=== PATIENT | male | born 1935 | race Caucasian/White ===

== ENCOUNTER 2017-10-31 22:38 | Inpatient (IN) ==
--- NOTE | 2017-11-01 00:09 | ED ---
HPI General Chief complaint: Chest Pain Stated complaint: resp/chest pain Time Seen by Provider: 10/31/17 23:44 Source: patient and family Mode of arrival: ambulatory Limitations: no limitations History of Present Illness HPI narrative: The patient is an 82 year old male who presents to the [facility] emergency department with a history of progressively worsening shortness of breath over the last couple of days. The patient reports that yesterday he did notice that he had slightly increased lower extremity edema. The patient has a prior history of coronary artery disease status post coronary artery bypass grafting of 4 vessels in February 2017. He also has a history of congestive heart failure with a prior ejection fraction 25%. The patient reports that he has been taking Lasix 40 mg twice a day as prescribed. The patient also reports being chronically anticoagulated on Coumadin due to atrial fibrillation. 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 He reports having an occasional productive cough that is productive of white sputum. He denies having any fevers or chills. He reports that earlier today he did have an approximately 30 -minute episode of left-sided chest pain. He reports that the chest pain is "irritable" in character. He denies having any chest pain currently. He reports having shortness of breath with the chest pain. He denies having any diaphoresis, nausea or vomiting, or radiation of pain associated with this. On review of systems otherwise, the patient denies having any neck pain, abdominal pain, diarrhea, urinary symptoms, or neurologic symptoms. The patient reports that he last moved his bowels earlier today. He denies having any blood in his stool or black or tarry stools. Related Data Home Medications Medication Instructions Recorded Confirmed acetaminophen 1 tab PO Q4HR PRN 11/01/17 11/01/17 albuterol sulfate [Ventolin HFA] 2 puff INHALATION DAILY PRN 11/01/17 11/01/17 amlodipine 10 mg PO DAILY 11/01/17 11/01/17 aspirin 81 mg PO DAILY 11/01/17 11/01/17 cyanocobalamin (vitamin B-12) 2,000 mcg PO DAILY 11/01/17 11/01/17 [Vitamin B-12] donepezil 5 mg PO DAILY 11/01/17 11/01/17 furosemide 40 mg PO BID 11/01/17 11/01/17 losartan 25 mg PO DAILY 11/01/17 11/01/17 metoprolol succinate 25 mg PO BID 11/01/17 11/01/17 potassium chloride 20 meq PO BID 11/01/17 11/01/17 ranitidine HCl 300 mg PO DAILY 11/01/17 11/01/17 simvastatin 20 mg PO QPM 11/01/17 11/01/17 tamsulosin 0.4 mg PO DAILY 11/01/17 11/01/17 warfarin 4 mg PO DAILY 11/01/17 11/01/17 Allergies Allergy/AdvReac Type Severity Reaction Status Date / Time No Known Allergies Allergy Verified 10/31/17 23:28 Review of Systems ROS Unobtainable All other systems reviewed negative except as stated in HPI PMFSH History History Provided By: Patient and Family Member Medical History Medical History Atrial fibrillation (Acute) COPD (chronic obstructive pulmonary disease) (Acute) Congestive heart failure (Acute) Coronary artery disease (Acute) Dementia (Acute) Hypertension (Acute) Surgical History Surgical History History of knee replacement procedure of left knee (Acute) History of knee replacement procedure of right knee (Acute) S/P CABG x 4 (Acute) Social History Social History Substance History: No History of Abuse Second Hand Smoke Exposure: No Smoking Status: Former smoker How Often Do You Have a Drink Containing Alcohol: Never Recent Travel in [facility] within the Last 8 Weeks: No Recent Out of Country Travel within the Last 8 Weeks: No Exam Const General: cooperative, healthy appearing and well developed Nutritional Appearance: well nourished Orientation: alert, awake and oriented x3 HENAK Head: normocephalic and atraumatic Nose: no nasal discharge and no epistaxis Mouth: moist mucous membranes Throat: posterior oropharynx normal Eyes Sclera: normal sclerae Pupils: PERRL Neck Neck: trachea midline and no JVD Resp Effort & Inspection: normal respiratory effort and no use of accessory muscles Auscultation: crackles on the left, no rhonchi and no wheezes Cardio Rate: regular rate Rhythm: regular rhythm Heart Sounds: no gallops, murmur systolic early and I/ and no rubs GI Inspection: non-distended Palpation: soft, no hepatosplenomegaly and nontender Skin General: dry skin (warm) Neuro General: alert, awake and oriented x3 Cranial Nerves: CN's II-XI intact bilaterally Speech: speech normal Motor: no movement abnormalities noted Extrem General: normal to inspection, no clubbing, no cyanosis, edema Laterality: bilaterally and pedal edema (1+) bilaterally Psych Mood: congruent mood Affect: normal affect Judgment: judgment good Course Consultations Consultation #1: The patient's case including history, pertinent physical examination findings, and laboratory studies were discussed with Dr. Fonseca. It was agreed that the patient would be admitted to the hospitalist service. Initial Documented Vital Signs Temperature 97.6 F 10/31/17 23:23 Pulse Rate 89 10/31/17 23:23 Respiratory Rate 18 10/31/17 23:23 Blood Pressure 115/55 L 10/31/17 23:23 Pulse Oximetry 95 10/31/17 23:23 Last Documented Vital Signs Temperature 97.0 F L 11/01/17 16:00 Pulse Rate 69 11/01/17 16:00 Respiratory Rate 28 H 11/01/17 16:00 Blood Pressure 114/57 L 11/01/17 16:00 Pulse Oximetry 93 L 11/01/17 16:00 Medical Decision Making MDM Narrative Medical decision making narrative: During the course of the patient's emergency department visit, the patient's history, examination, and differential diagnosis were reviewed with the patient. The patient was placed on a monitoring specialist with oximetry and frequent blood pressure monitoring. The patient had IV access obtained and blood work sent for analysis. Diagnostic evaluation was started to determine the possible cause of the patient's shortness of breath. Differential diagnosis includes congestive heart failure exacerbation, versus pneumonia, versus COPD exacerbation, versus acute coronary syndrome The patient was initially provided aspirin 243 mg p.o. x1, sublingual nitroglycerin x1. The patient is noted to have acute on chronic kidney injury most likely related to diuresis from Lasix use for CHF with a recent exacerbation. The patient will be admitted to the hospital for continued evaluation and treatment. Differential Diagnosis Differential Diagnosis: congestive heart failure exacerbation, versus pneumonia , versus COPD exacerbation, versus acute coronary syndrome Medical Records Medical records reviewed: Yes I reviewed the patient's medical records. Lab Data Lab results reviewed: Yes I reviewed the patient's lab results. Result diagrams: 11/01/17 00:10 11/01/17 00:10 Lab Results 11/01/17 11/01/17 11/01/17 Range/Units 00:10 00:10 00:10 WBC 7.9 (4.0-11.0) th/mm3 RBC 4.70 (4.50-5.90) mil/mm3 Hgb 12.1 L (13.0-17.0) gm/dL Hct 37.2 L (39.0-51.0) % MCV 79.1 L (80.0-100.0) fL MCH 25.7 L (27.0-34.0) pg MCHC 32.4 (32.0-36.0) % RDW 18.7 H (11.6-17.2) % Plt Count 160 (150-450) th/mm3 MPV 9.5 (7.0-11.0) fL Neut % (Auto) 76.7 H (16.0-70.0) % Lymph % (Auto) 14.6 (9.0-44.0) % [place] % (Auto) 7.8 (0.0-8.0) % Eos % (Auto) 0.1 (0.0-4.0) % Baso % (Auto) 0.8 (0.0-2.0) % Neut # (Auto) 6.1 (1.8-7.7) th/mm3 Lymph # (Auto) 1.2 (1.0-4.8) th/mm3 [place] # (Auto) 0.6 (0.0-0.9) th/mm3 Eos # (Auto) 0.0 (0.0-0.4) th/mm3 Baso # (Auto) 0.1 (0.0-0.2) th/mm3 WBC Differential . Differential Comment Auto diff final PT 49.1 H (9.8-11.6) sec INR 4.9 Ratio APTT 40.2 H (24.3-30.1) sec Sodium 134 L (136-145) meq/L Potassium 5.5 H (3.5-5.1) meq/L Chloride 104 (98-107) meq/L Carbon Dioxide 16.7 L (21.0-32.0) meq/L Anion Gap 13 (5-15) meq/L BUN 42 H (7-18) mg/dL Creatinine 2.35 H (0.60-1.30) mg/dL Estimated GFR 27 L (>89) mL/min Random Glucose 120 H (74-106) mg/dL Calcium 8.9 (8.5-10.1) mg/dL Magnesium 2.3 (1.5-2.5) mg/dL Total Bilirubin 1.3 H (0.2-1.0) mg/dL AST 21 (15-37) U/L ALT 22 (12-78) U/L Alkaline Phosphatase 101 (45-117) U/L Total Creatine Kinase 206 (39-308) U/L CK-MB (CK-2) 2.2 (0.5-3.6) ng/mL Troponin I Less than 0.02 L (0.02-0.05) ng/mL B-Natriuretic Peptide (0-100) pg/mL Total Protein 8.0 (6.4-8.2) g/dL Albumin 3.7 (3.4-5.0) g/dL Lipase 204 (73-393) U/L 11/01/17 Range/Units 00:10 WBC (4.0-11.0) th/mm3 RBC (4.50-5.90) mil/mm3 Hgb (13.0-17.0) gm/dL Hct (39.0-51.0) % MCV (80.0-100.0) fL MCH (27.0-34.0) pg MCHC (32.0-36.0) % RDW (11.6-17.2) % Plt Count (150-450) th/mm3 MPV (7.0-11.0) fL Neut % (Auto) (16.0-70.0) % Lymph % (Auto) (9.0-44.0) % [place] % (Auto) (0.0-8.0) % Eos % (Auto) (0.0-4.0) % Baso % (Auto) (0.0-2.0) % Neut # (Auto) (1.8-7.7) th/mm3 Lymph # (Auto) (1.0-4.8) th/mm3 [place] # (Auto) (0.0-0.9) th/mm3 Eos # (Auto) (0.0-0.4) th/mm3 Baso # (Auto) (0.0-0.2) th/mm3 WBC Differential Differential Comment PT (9.8-11.6) sec INR Ratio APTT (24.3-30.1) sec Sodium (136-145) meq/L Potassium (3.5-5.1) meq/L Chloride (98-107) meq/L Carbon Dioxide (21.0-32.0) meq/L Anion Gap (5-15) meq/L BUN (7-18) mg/dL Creatinine (0.60-1.30) mg/dL Estimated GFR (>89) mL/min Random Glucose (74-106) mg/dL Calcium (8.5-10.1) mg/dL Magnesium (1.5-2.5) mg/dL Total Bilirubin (0.2-1.0) mg/dL AST (15-37) U/L ALT (12-78) U/L Alkaline Phosphatase (45-117) U/L Total Creatine Kinase (39-308) U/L CK-MB (CK-2) (0.5-3.6) ng/mL Troponin I (0.02-0.05) ng/mL B-Natriuretic Peptide 1404 H (0-100) pg/mL Total Protein (6.4-8.2) g/dL Albumin (3.4-5.0) g/dL Lipase (73-393) U/L Imaging Data Radiologist's impression: Chest X-Ray 10/31/17 23:46 CONCLUSION: Cardiomegaly with small left pleural effusion. Postoperative changes above. Abdomen/Bladder Ultrasound 11/01/17 00:00 CONCLUSION: 1. Small right renal cyst and pleural effusion. Cervical Spine CT 11/01/17 00:00 CONCLUSION: 1. Degenerative change. No acute findings. Sign report Head CT 11/01/17 04:33 CONCLUSION: 1. No acute intracranial abnormalities. Cortical volume loss. ECG Data Attestation: I personally reviewed and interpreted this ECG as follows: Interpretation: An EKG was done on arrival that shows an elective regular paced rhythm, heart rate is 69, no acute ST segment changes Discharge Plan Discharge Disposition Patient Disposition: 30 Still Patient Physicians Team ED Provider: Andria Yates Primary Care Provider: Primary Care Noni,Jessica Attending Provider: Adwoa Goodwin Other Providers: Jason Kebede Status ED Status: Left Department Discharge Information Discharge Date/Time: 11/01/17 08:09
--- NOTE | 2017-11-01 00:20 | XR ---
EXAM DATE: 11/01/2017 12:08 AM EDT AGE/SEX: 82 years / Male INDICATIONS: . Short of breath. Chest pain CLINICAL DATA: This is the patient's subsequent encounter. Patient reports that signs and symptoms h ave been present for 2 days and indicates a pain score of 4/10. MEDICAL/SURGICAL HISTORY: Hypertension. Myocardial infarction. CABG. Pacemaker. COMPARISON: [facility] [place], CHEST SINGLE AP, 10/11/2017. . FINDINGS: Heart size enlarged. Postoperative CABG with atrial clip. Pacer lead unchanged. Probable small left e ffusion. No focal dense consolidation. No pneumothorax. CONCLUSION: Cardiomegaly with small left pleural effusion. Postoperative changes above. Electronically signed by: Clinton Pierce MD 11/01/2017 12:19 AM EDT
[2017-11-01 00:33] LABS: Baso # (Auto) 0.1 th/mm3 (0.0-0.2); Baso % (Auto) 0.8 % (0.0-2.0); Eos % (Auto) 0.1 % (0.0-4.0); Hematocrit 37.2 % (39.0-51.0); Hemoglobin 12.1 gm/dL (13.0-17.0); Lymph # (Auto) 1.2 th/mm3 (1.0-4.8); Lymph % (Auto) 14.6 % (9.0-44.0); Mean Corpuscular HGB Conc 32.4 % (32.0-36.0); Mean Corpuscular Hemoglobin 25.7 pg (27.0-34.0); Mean Corpuscular Volume 79.1 fL (80.0-100.0); Mean Platelet Volume 9.5 fL (7.0-11.0); Mono # (Auto) 0.6 th/mm3 (0.0-0.9); Mono % (Auto) 7.8 % (0.0-8.0); Neut # (Auto) 6.1 th/mm3 (1.8-7.7); Neut % (Auto) 76.7 % (16.0-70.0); Platelet Count 160 th/mm3 (150-450); Red Cell Distribution Width 18.7 % (11.6-17.2); White Blood Count 7.9 th/mm3 (4.0-11.0)
[2017-11-01 00:45] LABS: Alanine Aminotransferase 22 U/L (12-78); Albumin 3.7 g/dL (3.4-5.0); Anion Gap 13 meq/L (5-15); Aspartate Aminotransferase 21 U/L (15-37); Blood Urea Nitrogen 42 mg/dL (7-18); Calcium 8.9 mg/dL (8.5-10.1); Carbon Dioxide 16.7 meq/L (21.0-32.0); Chloride 104 meq/L (98-107); Glomerular Filtration Rate 27 mL/min (>89); Glucose,Random 120 mg/dL (74-106); Lipase 204 U/L (73-393); Magnesium 2.3 mg/dL (1.5-2.5); Potassium 5.5 meq/L (3.5-5.1); Sodium 134 meq/L (136-145)
[2017-11-01 00:49] LABS: Alkaline Phosphatase 101 U/L (45-117); Creatine Kinase 206 U/L (39-308)
[2017-11-01 00:50] LABS: Activated Partial Thrombo Time 40.2 sec (24.3-30.1); INR 4.9 Ratio; Prothrombin Time 49.1 sec (9.8-11.6)
[2017-11-01 01:01] LABS: Creatine Kinase MB 2.2 ng/mL (0.5-3.6)
[2017-11-01] MEDS ORDERED: Bisacodyl 10 MG Supp RECTAL PRN (04:10)
[2017-11-01] MEDS ORDERED: Temazepam 15 MG Capsule PO PRN (04:10)
[2017-11-01] MEDS ORDERED: Acetaminophen 325 MG Tablet PO PRN (04:10)
--- NOTE | 2017-11-01 04:29 | P.HP ---
History of Present Illness Service: [facility] Primary Care Physician: No Primary Care Physician Chief Complaint: Neck pain, SOB History of Present Illness: 82-year-old male with a past medical history significant for atrial fibrillation anticoagulated on Coumadin, coronary artery disease, hypertension, hyperlipidemia, CHF and dementia presents to the emergency department for the evaluation of neck pain and shortness of breath. 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 He states his neck pain has worsened and he now has numbness and tingling in the back of his neck. He denies any paresthesias down the upper extremities. He also endorses insomnia with shortness of breath, PND and dyspnea on exertion. He denies any weakness or fatigue. Denies any worsening edema. No chest pain. No fevers/chills. No abdominal pain. No nausea/vomiting/diarrhea. No lateralizing signs/symptoms. Inpatient Certification: I certify that the inpatient services were ordered in accordance with Medicare regulations governing the order. This includes certification that hospital inpatient services are reasonable and necessary and in the case of services not specified as inpatient-only under 42 CFR 419.22(n), that they are appropriately provided as inpatient services in accordance to with the 2-midnight benchmark under 43 CFR 412.3(e) Estimated Total Length of Stay (Days): 2 Plans for Post Hospital Care: Not yet determined Review of Systems All other systems reviewed negative except as stated in HPI [facility] - History History Provided By: Patient, Family Member - Medical History Medical History: Medical History (Last Updated 11/01/17 @ 00:04 by Andria Yates MD) Atrial fibrillation COPD (chronic obstructive pulmonary disease) Congestive heart failure Coronary artery disease Dementia Hypertension - Surgical History Surgical History: Surgical History (Last Updated 11/01/17 @ 00:05 by Andria Yates MD) History of knee replacement procedure of left knee History of knee replacement procedure of right knee S/P CABG x 4 - Tobacco History Second Hand Smoke Exposure: No Tobacco Use In Past 30 Days: No Smoking Status: Former smoker - Alcohol History How Often Do You Have a Drink Containing Alcohol: Never - Substance Use History Substance History: No History of Abuse - Travel History Recent Travel in the [place] Within the Last 8 Weeks: No Recent Travel Out of the Country Within the Last 8 Weeks: No - Immunization History Tetanus Immunization: <5 Years Hx Influenza Vaccine This Season: Yes Medications and Allergies Active Medications: Active Medications Acetaminophen (Tylenol) 650 mg PO Q4H PRN PRN Reason: Temp > 100.4 Al Hydroxide/Mg Hydroxide (Milk Of Magnesia Liq) 30 ml PO Q12H PRN PRN Reason: Mild Constipation Amlodipine Besylate (Norvasc) 10 mg PO DAILY [place] Aspirin (Ecotrin) 81 mg PO DAILY [facility] Bisacodyl (Dulcolax Supp) 10 mg RECTAL DAILY PRN PRN Reason: SEVERE CONSITIPATION Bumetanide (Bumex Inj) 1 mg IV.PUSH BID@0900,1800 [place] Donepezil HCl (Aricept) 5 mg PO DAILY [place] Lactulose (Lactulose Liq) 30 ml PO DAILY PRN PRN Reason: SEVERE CONSITIPATION Losartan Potassium (Cozaar) 25 mg PO DAILY [place] Metoprolol Succinate (Toprol Xl) 25 mg PO BID [facility] Non-Formulary Medication (Simvastatin [Simvastatin]) 20 mg PO QPM [place] Ondansetron HCl (Zofran Inj) 4 mg IV.PUSH Q6H PRN PRN Reason: NAUSEA OR VOMITING Senna/Docusate Sodium (Virgen-Colace) 1 tab PO BID [facility] Sennosides (Senokot) 17.2 mg PO Q12H PRN PRN Reason: Moderate Constipation Sodium Chloride (Ns Flush) 2 ml IV.FLUSH UNSCH PRN PRN Reason: FLUSH AFTER USING IV ACCESS Tamsulosin HCl (Flomax) 0.4 mg PO DAILY [place] Temazepam (Restoril) 15 mg PO HS PRN PRN Reason: INSOMNIA Allergies Allergy/AdvReac Type Severity Reaction Status Date / Time No Known Allergies Allergy Verified 10/31/17 23:28 Home Medications Medication Instructions Recorded Confirmed Type acetaminophen 1 tab PO Q4HR PRN 11/01/17 11/01/17 History albuterol sulfate [Ventolin HFA] 2 puff INHALATION DAILY PRN 11/01/17 11/01/17 History amlodipine 10 mg PO DAILY 11/01/17 11/01/17 History aspirin 81 mg PO DAILY 11/01/17 11/01/17 History cyanocobalamin (vitamin B-12) 2,000 mcg PO DAILY 11/01/17 11/01/17 History [Vitamin B-12] donepezil 5 mg PO DAILY 11/01/17 11/01/17 History furosemide 40 mg PO BID 11/01/17 11/01/17 History losartan 25 mg PO DAILY 11/01/17 11/01/17 History metoprolol succinate 25 mg PO BID 11/01/17 11/01/17 History potassium chloride 20 meq PO BID 11/01/17 11/01/17 History ranitidine HCl 300 mg PO DAILY 11/01/17 11/01/17 History simvastatin 20 mg PO QPM 11/01/17 11/01/17 History tamsulosin 0.4 mg PO DAILY 11/01/17 11/01/17 History warfarin 4 mg PO DAILY 11/01/17 11/01/17 History Exam Vital signs: Vital Signs 10/31/17 23:23 10/31/17 23:46 11/01/17 00:16 Temperature 97.6 F Pulse Rate 89 68 69 Respiratory Rate 18 30 H Blood Pressure 115/55 L 111/65 Pulse Oximetry 95 92 L 11/01/17 00:45 11/01/17 01:00 11/01/17 02:00 Temperature Pulse Rate 68 68 68 Respiratory Rate 32 H 28 H 28 H Blood Pressure 102/56 L 110/63 139/67 Pulse Oximetry 96 94 L 96 11/01/17 02:30 Temperature Pulse Rate 68 Respiratory Rate 23 Blood Pressure 128/73 Pulse Oximetry 97 Intake & Output 10/31/17 10/31/17 11/01/17 06:59 18:59 06:59 Weight 78.018 kg Narrative: Gen.: No acute distress Head: Normocephalic. Atraumatic. EENT: Pupils equal round and reactive to light. Nose without drainage. Airway intact. Throat without injection. Cardiovascular: Regular rate and rhythm. No murmurs, rubs or gallops. Respiratory: Lungs clear to auscultation bilaterally. No wheezes or rhonchi. Abdomen: Soft, nontender, nondistended. No peritoneal signs. Musculoskeletal: No gross deformities. No edema. Tender to palpation in the cervical spine. No meningeal signs. Skin: No obvious rashes or erythema. Neuro: Sensory and motor grossly intact. Cranial nerves II through XII grossly intact. Psych: Appropriate mood and affect Results - Labs CBC & Chem 7: 11/01/17 00:10 11/01/17 00:10 Labs: Laboratory Results - last 24 hr 11/01/17 11/01/17 11/01/17 00:10 00:10 00:10 WBC 7.9 RBC 4.70 Hgb 12.1 L Hct 37.2 L MCV 79.1 L MCH 25.7 L MCHC 32.4 RDW 18.7 H Plt Count 160 MPV 9.5 Neut % (Auto) 76.7 H Lymph % (Auto) 14.6 [place] % (Auto) 7.8 Eos % (Auto) 0.1 Baso % (Auto) 0.8 Neut # (Auto) 6.1 Lymph # (Auto) 1.2 [place] # (Auto) 0.6 Eos # (Auto) 0.0 Baso # (Auto) 0.1 WBC Differential . Differential Comment Auto diff final PT 49.1 H INR 4.9 APTT 40.2 H Sodium 134 L Potassium 5.5 H Chloride 104 Carbon Dioxide 16.7 L Anion Gap 13 BUN 42 H Creatinine 2.35 H Estimated GFR 27 L Random Glucose 120 H Calcium 8.9 Magnesium 2.3 Total Bilirubin 1.3 H AST 21 ALT 22 Alkaline Phosphatase 101 Total Creatine Kinase 206 CK-MB (CK-2) 2.2 Troponin I Less than 0.02 L B-Natriuretic Peptide Total Protein 8.0 Albumin 3.7 Lipase 204 11/01/17 00:10 WBC RBC Hgb Hct MCV MCH MCHC RDW Plt Count MPV Neut % (Auto) Lymph % (Auto) [place] % (Auto) Eos % (Auto) Baso % (Auto) Neut # (Auto) Lymph # (Auto) [place] # (Auto) Eos # (Auto) Baso # (Auto) WBC Differential Differential Comment PT INR APTT Sodium Potassium Chloride Carbon Dioxide Anion Gap BUN Creatinine Estimated GFR Random Glucose Calcium Magnesium Total Bilirubin AST ALT Alkaline Phosphatase Total Creatine Kinase CK-MB (CK-2) Troponin I B-Natriuretic Peptide 1404 H Total Protein Albumin Lipase - Imaging Impressions Chest X-Ray 10/31/17 23:46 CONCLUSION: Cardiomegaly with small left pleural effusion. Postoperative changes above. Caprini VTE Risk Assessment Caprini VTE Risk Assessment: Moderate/High Risk (score >= 2) Caprini Risk Assessment Model: Point Value = 1 Point Value = 2 Point Value = 3 Point Value = 5 Age 41-60 Minor surgery BMI > 25 kg/m2 Swollen legs Varicose veins or History of unexplained or recurrent spontaneous Oral contraceptives or hormone replacement Sepsis (< 1 month) Serious lung disease, including pneumonia (< 1 month) Abnormal pulmonary function Acute myocardial infarction Congestive heart failure (< 1 month) History of inflammatory bowel disease Medical patient at bed rest Age 61-74 Arthroscopic surgery Major open surgery (> 45 min) Laparoscopic surgery (> 45 min) Malignancy Confined to bed (> 72 hours) Immobilizing plaster cast Central venous access Age >= 75 History of VTE Family history of VTE Factor V Leiden Prothrombin [id number] Lupus anticoagulant Anticardiolipin antibodies Elevated serum homocysteine Heparin-induced thrombocytopenia Other congenital or acquired thrombophilia Stroke (< 1 month) Elective arthroplasty Hip, pelvis, or leg fracture Acute spinal cord injury (< 1 month) Prophylaxis Regimen: Total Risk Factor Score Risk Level Prophylaxis Regimen 0-1 Low Early ambulation 2 Moderate Order ONE of the following: *Sequential Compression Device (SCD) *Heparin 5000 units SQ BID 3-4 Higher Order ONE of the following medications: *Heparin 5000 units SQ TID *Enoxaparin/Lovenox 40 mg SQ daily (WT < 150 kg, CrCl > 30 mL/min) *Enoxaparin/Lovenox 30 mg SQ daily (WT < 150 kg, CrCl > 10-29 mL/min) *Enoxaparin/Lovenox 30 mg SQ BID (WT < 150 kg, CrCl > 30 mL/min) AND/OR *Sequential Compression Device (SCD) 5 or more Highest Order ONE of the following medications: *Heparin 5000 units SQ TID (Preferred with Epidurals) *Enoxaparin/Lovenox 40 mg SQ daily (WT < 150 kg, CrCl > 30 mL/min) *Enoxaparin/Lovenox 30 mg SQ daily (WT < 150 kg, CrCl > 10-29 mL/min) *Enoxaparin/Lovenox 30 mg SQ BID (WT < 150 kg, CrCl > 30 mL/min) AND *Sequential Compression Device (SCD) Assessment and Plan - Plan Assessment/plan: 1. CHF exacerbation BNP elevated with shortness of breath and small pleural effusion on chest x-ray , personally reviewed IV Bumex Supplemental oxygen as needed 2. Acute renal failure Bumex IV given renal failure with Lasix Renal ultrasound pending Nephrology consulted, appreciate recommendations 3. Atrial fibrillation Continue home medications Continue anticoagulation with Coumadin INR supratherapeutic; consult pharmacy for assistance with Coumadin dosing 4. CAD/hypertension/hyperlipidemia/dementia Continue home medications FEN Renal diet Electrolytes: Monitor and replete as needed Coumadin
--- NOTE | 2017-11-01 04:46 | CT ---
EXAM DATE: 11/01/2017 4:39 AM EDT AGE/SEX: 82 years / Male INDICATIONS: Trauma; fall. CLINICAL DATA: This is the patient's initial encounter. Patient reports that signs and symptoms have been present for 1 day and indicates a pain score of 5/10. MEDICAL/SURGICAL HISTORY: Cardiovascular disease. Hypertension. CABG. RADIATION DOSE: 52.18 CTDI (mGy) COMPARISON: No prior exams available for comparison. TECHNIQUE: CT of the head without contrast. Using automated exposure control and adjustment of the mA and/or kV according to patient size, radiation dose was kept as low as reasonably achievable to ob tain optimal diagnostic quality images. DICOM format image data is available electronically for revi ew and comparison. FINDINGS: Cerebrum: The ventricles are normal for age. No evidence of midline shift, mass lesion, hemorrhage or acute infarction. No extraaxial fluid collections are seen. Posterior Fossa: The cerebellum and brainstem are intact. The 4th ventricle is midline. The cerebe llopontine angle is unremarkable. Extracranial: The visualized portion of the orbits is intact. Skull: The calvaria is intact. No evidence of skull fracture. CONCLUSION: 1. No acute intracranial abnormalities. Cortical volume loss. Electronically signed by: Clinton Pierce MD 11/01/2017 4:45 AM EDT
--- NOTE | 2017-11-01 04:53 | CT ---
EXAM DATE: 11/01/2017 4:40 AM EDT AGE/SEX: 82 years / Male INDICATIONS: Trauma; fall. CLINICAL DATA: This is the patient's initial encounter. Patient reports that signs and symptoms have been present for 1 day and indicates a pain score of 5/10. MEDICAL/SURGICAL HISTORY: Cardiovascular disease. Hypertension. CABG. RADIATION DOSE: 15.36 CTDI (mGy) [place] [facility] [place]/O CONTRAST W 3D RECON, 10/18/2011. . TECHNIQUE: Contiguous axial images were obtained using helical multirow detector technique. The vol umetric data was post-processed with multiplanar reconstruction in oblique axial, sagittal, and coron al planes. Using automated exposure control and adjustment of the mA and/or kV according to patient s ize, radiation dose was kept as low as reasonably achievable to obtain optimal diagnostic quality wandy ges. DICOM format image data is available electronically for review and comparison. FINDINGS: There is no acute fracture or spondylolisthesis. No prevertebral soft tissue swelling. Moderate facet arthropathy. No canal stenosis. CONCLUSION: 1. Degenerative change. No acute findings. Sign report Electronically signed by: Clinton Pierce MD 11/01/2017 4:52 AM EDT
[2017-11-01] MEDS ORDERED: Warfarin Consult Pharmacy 1 EACH OTHER SCH (05:00)
--- NOTE | 2017-11-01 09:27 | US ---
EXAM DATE: 11/01/2017 9:22 AM EDT AGE/SEX: 82 years / Male INDICATIONS: Increased lab values. CLINICAL DATA: This is the patient's initial encounter. Patient reports that signs and symptoms have been present for 1 day and indicates a pain score of 0/10. MEDICAL/SURGICAL HISTORY: . AFib. CHF. COPD. Coronary artery disease. Dementia. HTN. . CABG x4 . Bilateral knee replacements. COMPARISON: No prior exams available for comparison. MEASUREMENTS: Right Kidney:__9.5 x 4.9 x 5.0 cm Left Kidney:__9.1 x 5.5 x 4.9 cm FINDINGS: Right Kidney: Increased echotexture. No mass or hydronephrosis. Left Kidney: There is a small 1.2 cm cyst in the midpole of the left kidney. Bladder: Within normal limits given the degree of distension. Other: Small right pleural effusion is seen. CONCLUSION: 1. Small right renal cyst and pleural effusion. Electronically signed by: Marcy Benitez MD 11/01/2017 9:26 AM EDT
[2017-11-01] MEDS: Senna/Docusate Sodium 8.6/50 MG Tablet PO SCH ×2 (09:41→21:29)
[2017-11-01] MEDS: amLODIPine 10 MG Tablet PO SCH (09:41)
--- NOTE | 2017-11-01 14:03 | P.PNIM ---
Subjective Interval history: still with SOB, no complaints of chest pain. Physical Exam Vital signs: Vital Signs 10/31/17 23:23 10/31/17 23:46 11/01/17 00:16 Temperature 97.6 F Pulse Rate 89 68 69 Respiratory Rate 18 30 H Blood Pressure 115/55 L 111/65 Pulse Oximetry 95 92 L 11/01/17 00:45 11/01/17 01:00 11/01/17 02:00 Temperature Pulse Rate 68 68 68 Respiratory Rate 32 H 28 H 28 H Blood Pressure 102/56 L 110/63 139/67 Pulse Oximetry 96 94 L 96 11/01/17 02:30 11/01/17 03:00 11/01/17 04:00 Temperature Pulse Rate 68 68 68 Respiratory Rate 23 23 19 Blood Pressure 128/73 122/68 122/75 Pulse Oximetry 97 96 95 11/01/17 06:00 11/01/17 09:13 Temperature Pulse Rate 69 Respiratory Rate 20 Blood Pressure 115/64 Pulse Oximetry 96 95 Intake & Output 10/31/17 11/01/17 11/01/17 18:59 06:59 18:59 Weight 78.018 kg Narrative: GENERAL: This is a well-nourished, well-developed patient, in no apparent distress. CARDIOVASCULAR: Regular rate and rhythm RESPIRATORY: bibasilar crackles GASTROINTESTINAL: Abdomen soft, non-tender, nondistended. Normal active bowel sounds MUSCULOSKELETAL: Extremities without clubbing, cyanosis, trace edema NEURO: Alert & Oriented x4 to person, place, time, situation. Moves all ext x4 Results - Labs CBC & Chem 7: 11/01/17 00:10 11/01/17 00:10 Laboratory Results - last 24 hr 11/01/17 11/01/17 11/01/17 00:10 00:10 00:10 WBC 7.9 RBC 4.70 Hgb 12.1 L Hct 37.2 L MCV 79.1 L MCH 25.7 L MCHC 32.4 RDW 18.7 H Plt Count 160 MPV 9.5 Neut % (Auto) 76.7 H Lymph % (Auto) 14.6 [place] % (Auto) 7.8 Eos % (Auto) 0.1 Baso % (Auto) 0.8 Neut # (Auto) 6.1 Lymph # (Auto) 1.2 [place] # (Auto) 0.6 Eos # (Auto) 0.0 Baso # (Auto) 0.1 WBC Differential . Differential Comment Auto diff final PT 49.1 H INR 4.9 APTT 40.2 H Sodium 134 L Potassium 5.5 H Chloride 104 Carbon Dioxide 16.7 L Anion Gap 13 BUN 42 H Creatinine 2.35 H Estimated GFR 27 L Random Glucose 120 H Calcium 8.9 Magnesium 2.3 Total Bilirubin 1.3 H AST 21 ALT 22 Alkaline Phosphatase 101 Total Creatine Kinase 206 CK-MB (CK-2) 2.2 Troponin I Less than 0.02 L B-Natriuretic Peptide Total Protein 8.0 Albumin 3.7 Lipase 204 11/01/17 00:10 WBC RBC Hgb Hct MCV MCH MCHC RDW Plt Count MPV Neut % (Auto) Lymph % (Auto) [place] % (Auto) Eos % (Auto) Baso % (Auto) Neut # (Auto) Lymph # (Auto) [place] # (Auto) Eos # (Auto) Baso # (Auto) WBC Differential Differential Comment PT INR APTT Sodium Potassium Chloride Carbon Dioxide Anion Gap BUN Creatinine Estimated GFR Random Glucose Calcium Magnesium Total Bilirubin AST ALT Alkaline Phosphatase Total Creatine Kinase CK-MB (CK-2) Troponin I B-Natriuretic Peptide 1404 H Total Protein Albumin Lipase - Imaging Impressions Chest X-Ray 10/31/17 23:46 CONCLUSION: Cardiomegaly with small left pleural effusion. Postoperative changes above. Abdomen/Bladder Ultrasound 11/01/17 00:00 CONCLUSION: 1. Small right renal cyst and pleural effusion. Cervical Spine CT 11/01/17 00:00 CONCLUSION: 1. Degenerative change. No acute findings. Sign report Head CT 11/01/17 04:33 CONCLUSION: 1. No acute intracranial abnormalities. Cortical volume loss. - Procedures none Assessment and Plan - Plan 1. CHF exacerbation, acute on chronic systolic BNP elevated with shortness of breath and small pleural effusion on chest x-ray , personally reviewed IV Bumex Supplemental oxygen as needed, wean as tolerated. Strict I and O Fluid restriction 2. Acute renal failure superimposed on CKD stage 3 Bumex IV given renal failure with Lasix Renal ultrasound pending Nephrology consulted, appreciate recommendations 3. Atrial fibrillation with Continue home medications Toprol for rate control Continue anticoagulation with Coumadin INR supratherapeutic; consult pharmacy for assistance with Coumadin dosing, monitor INR 4. CAD/hypertension/hyperlipidemia/dementia Continue home medications, statin, toprol, Cozaar, Norvasc 5. FEN Renal diet Electrolytes: Monitor and replete as needed 6. DVT prophylaxis Coumadin
--- NOTE | 2017-11-01 16:41 | P.CONNP ---
<Elyssa Hartley - Last Filed: 11/01/17 16:26> History of Present Illness Service: Nephrology Consult date: 11/01/17 Reason for Consult: Acute Renal Failure Primary Care Provider: No Primary Care Physician Chief Complaint: Neck pain, SOB History of Present Illness: This is a 82 y/o male patient admitted this AM for neck pain and shortness of breath. He is visibly dyspneic on exam. PMH of A fib on Coumadin, CAD s/p CABG, HTN, COPD , hx of PPM placement, and hx of CHF. His EF is around 25%, and he is not on oxygen at home. We were consulted for renal management. His creatinine was 2.35 on admission. Looking back, it was around 1.2 last September. He is on Lasix at home, here has been placed on Bumex 1 mg IV BID. He is making urine. He is also mildly hyperkalemic, noted to be on KCL orally and ARB at home. He is awake, alert, in mild distress as mentioned above,and is a full code. Review of Systems Cardiovascular: Denies chest pain Respiratory: Reports chest congestion, Reports cough, Reports shortness of breath, Reports shortness of breath with activity, Reports wheezing Gastrointestinal: Denies abdominal pain PMFSH - History History Provided By: Patient, Family Member - Medical History Medical History: Medical History (Last Updated 11/01/17 @ 00:04 by Andria Yates MD) Atrial fibrillation COPD (chronic obstructive pulmonary disease) Congestive heart failure Coronary artery disease Dementia Hypertension - Surgical History Surgical History: Surgical History (Last Updated 11/01/17 @ 00:05 by Andria Yates MD) History of knee replacement procedure of left knee History of knee replacement procedure of right knee S/P CABG x 4 - Tobacco History Second Hand Smoke Exposure: No Tobacco Use In Past 30 Days: No Smoking Status: Former smoker - Alcohol History How Often Do You Have a Drink Containing Alcohol: Never - Substance Use History Substance History: No History of Abuse - Travel History Recent Travel in the [place] Within the Last 8 Weeks: No Recent Travel Out of the Country Within the Last 8 Weeks: No - Immunization History Tetanus Immunization: <5 Years Hx Influenza Vaccine This Season: Yes Medications and Allergies Allergies Allergy/AdvReac Type Severity Reaction Status Date / Time No Known Allergies Allergy Verified 10/31/17 23:28 Home Medications Medication Instructions Recorded Confirmed Type acetaminophen 1 tab PO Q4HR PRN 11/01/17 11/01/17 History albuterol sulfate [Ventolin HFA] 2 puff INHALATION DAILY PRN 11/01/17 11/01/17 History amlodipine 10 mg PO DAILY 11/01/17 11/01/17 History aspirin 81 mg PO DAILY 11/01/17 11/01/17 History cyanocobalamin (vitamin B-12) 2,000 mcg PO DAILY 11/01/17 11/01/17 History [Vitamin B-12] donepezil 5 mg PO DAILY 11/01/17 11/01/17 History furosemide 40 mg PO BID 11/01/17 11/01/17 History losartan 25 mg PO DAILY 11/01/17 11/01/17 History metoprolol succinate 25 mg PO BID 11/01/17 11/01/17 History potassium chloride 20 meq PO BID 11/01/17 11/01/17 History ranitidine HCl 300 mg PO DAILY 11/01/17 11/01/17 History simvastatin 20 mg PO QPM 11/01/17 11/01/17 History tamsulosin 0.4 mg PO DAILY 11/01/17 11/01/17 History warfarin 4 mg PO DAILY 11/01/17 11/01/17 History Active Medications: Active Medications Acetaminophen (Tylenol) 650 mg PO Q4H PRN PRN Reason: Temp > 100.4 Al Hydroxide/Mg Hydroxide (Milk Of Magnesia Liq) 30 ml PO Q12H PRN PRN Reason: Mild Constipation Amlodipine Besylate (Norvasc) 10 mg PO DAILY [facility] Last Admin: 11/01/17 09:41 Dose: 10 mg Aspirin (Ecotrin) 81 mg PO DAILY [facility] Last Admin: 11/01/17 09:40 Dose: 81 mg Bisacodyl (Dulcolax Supp) 10 mg RECTAL DAILY PRN PRN Reason: SEVERE CONSITIPATION Bumetanide (Bumex Inj) 1 mg IV.PUSH BID@0900,1800 [facility] Last Admin: 11/01/17 09:40 Dose: 1 mg Donepezil HCl (Aricept) 5 mg PO DAILY [facility] Last Admin: 11/01/17 09:40 Dose: 5 mg Pharmacy Profile Note (Coumadin Consult Pharmacy) 0 mls @ 0 mls/hr OTHER UNSCH [facility] Lactulose (Lactulose Liq) 30 ml PO DAILY PRN PRN Reason: SEVERE CONSITIPATION Losartan Potassium (Cozaar) 25 mg PO DAILY [facility] Last Admin: 11/01/17 09:40 Dose: 25 mg Metoprolol Succinate (Toprol Xl) 25 mg PO BID [facility] Last Admin: 11/01/17 09:40 Dose: 25 mg Ondansetron HCl (Zofran Inj) 4 mg IV.PUSH Q6H PRN PRN Reason: NAUSEA OR VOMITING Pravastatin Sodium (Pravachol) 40 mg PO HS [facility] Senna/Docusate Sodium (Virgen-Colace) 1 tab PO BID [facility] Last Admin: 11/01/17 09:41 Dose: Not Given Sennosides (Senokot) 17.2 mg PO Q12H PRN PRN Reason: Moderate Constipation Sodium Chloride (Ns Flush) 2 ml IV.FLUSH UNSCH PRN PRN Reason: FLUSH AFTER USING IV ACCESS Last Admin: 11/01/17 09:40 Dose: 2 ml Tamsulosin HCl (Flomax) 0.4 mg PO DAILY [facility] Last Admin: 11/01/17 09:40 Dose: 0.4 mg Temazepam (Restoril) 15 mg PO HS PRN PRN Reason: INSOMNIA Exam Vital signs: Vital Signs 10/31/17 23:23 10/31/17 23:46 11/01/17 00:16 Temperature 97.6 F Pulse Rate 89 68 69 Respiratory Rate 18 30 H Blood Pressure 115/55 L 111/65 Pulse Oximetry 95 92 L 11/01/17 00:45 11/01/17 01:00 11/01/17 02:00 Temperature Pulse Rate 68 68 68 Respiratory Rate 32 H 28 H 28 H Blood Pressure 102/56 L 110/63 139/67 Pulse Oximetry 96 94 L 96 11/01/17 02:30 11/01/17 03:00 11/01/17 04:00 Temperature Pulse Rate 68 68 68 Respiratory Rate 23 23 19 Blood Pressure 128/73 122/68 122/75 Pulse Oximetry 97 96 95 11/01/17 06:00 11/01/17 09:13 Temperature Pulse Rate 69 Respiratory Rate 20 Blood Pressure 115/64 Pulse Oximetry 96 95 Intake & Output 10/31/17 11/01/17 11/01/17 18:59 06:59 18:59 Weight 78.018 kg - Constitutional moderate distress, average body habitus, diaphoretic - Routine HEENT Exam Head: Present: normocephalic ENT: Present: mucous membranes moist - Routine Neck Exam Present: supple, full ROM, JVD - Routine Chest/Breast/Axilla Exam Chest wall: Present: pacemaker. Absent: tenderness - Routine Respiratory Exam Present: accessory muscle use, rales, respiratory distress, rhonchi, wheezes, crackles - Routine Cardiovascular Exam Present: RRR, murmur. Absent: S3, S4 Comments: paced rhythm - Routine Abdominal Exam Present: soft, normoactive bowel sounds - Routine Extremities Exam Present: full ROM, pulses intact. Absent: edema - Routine Skin Exam Present: intact, warm - Routine Neurological Exam Present: alert, oriented X3, CN II-XII intact Results - Lab Results 11/01/17 00:10 11/01/17 00:10 Most recent lab results Calcium 8.9 mg/dL (8.5-10.1) 11/01/17 00:10 Magnesium 2.3 mg/dL (1.5-2.5) 11/01/17 00:10 - Image Kidney/bladder ultrasound: report reviewed Assessment and Plan - Assessment (1) Acute renal failure Code(s): N17.9 - Acute kidney failure, unspecified Status: Acute Plan: His baseline creatinine is 1.2 from last year. JEFF may be due to CHF and increased renal vein pressure. He is non oliguric No obstruction on imaging. Obtain UA Repeat labs in AM Mild hyperkalemia noted, would avoid KCL supplements in the future, he is on ARB. Mild acidosis is noted, monitor for now. Avoid nephrotoxic agents Avoid hypotension (2) CHF (congestive heart failure), NYHA class III Code(s): I50.9 - Heart failure, unspecified Status: Acute Plan: Cardiology consulted. Old echo reviewed. Diuresis as above. It is noted his BNP is not that high. Monitor fluid status. Low salt diet. (3) Shortness of breath Code(s): R06.02 - Shortness of breath Status: Acute Plan: Thought to be due to CHF, he has small pleural effusion. Requiring oxygen. Ween when able Rule out pneumonia Monitor fluid status (4) HTN (hypertension) Code(s): I10 - Essential (primary) hypertension Status: Acute Plan: Resume home medications (5) A-fib Code(s): I48.91 - Unspecified atrial fibrillation Status: Acute Plan: On Coumadin, INR is nearly 5. Monitor coags, hold Coumadin. <Jason Kebede - Last Filed: 11/01/17 19:38> History of Present Illness Primary Care Provider: No Primary Care Physician [facility] - Medical History Medical History: Medical History (Last Updated 11/01/17 @ 00:04 by Andria Yates MD) Atrial fibrillation COPD (chronic obstructive pulmonary disease) Congestive heart failure Coronary artery disease Dementia Hypertension - Surgical History Surgical History: Surgical History (Last Updated 11/01/17 @ 00:05 by Andria Yates MD) History of knee replacement procedure of left knee History of knee replacement procedure of right knee S/P CABG x 4 Medications and Allergies Active Medications: Active Medications Acetaminophen (Tylenol) 650 mg PO Q4H PRN PRN Reason: Temp > 100.4 Al Hydroxide/Mg Hydroxide (Milk Of Magnesia Liq) 30 ml PO Q12H PRN PRN Reason: Mild Constipation Amlodipine Besylate (Norvasc) 10 mg PO DAILY [facility] Last Admin: 11/01/17 09:41 Dose: 10 mg Aspirin (Ecotrin) 81 mg PO DAILY [facility] Last Admin: 11/01/17 09:40 Dose: 81 mg Bisacodyl (Dulcolax Supp) 10 mg RECTAL DAILY PRN PRN Reason: SEVERE CONSITIPATION Bumetanide (Bumex Inj) 1 mg IV.PUSH BID@0900,1800 [facility] Last Admin: 11/01/17 09:40 Dose: 1 mg Donepezil HCl (Aricept) 5 mg PO DAILY [facility] Last Admin: 11/01/17 09:40 Dose: 5 mg Pharmacy Profile Note (Coumadin Consult Pharmacy) 0 mls @ 0 mls/hr OTHER UNSCH [facility] Lactulose (Lactulose Liq) 30 ml PO DAILY PRN PRN Reason: SEVERE CONSITIPATION Losartan Potassium (Cozaar) 25 mg PO DAILY [facility] Last Admin: 11/01/17 09:40 Dose: 25 mg Metoprolol Succinate (Toprol Xl) 25 mg PO BID [facility] Last Admin: 11/01/17 09:40 Dose: 25 mg Ondansetron HCl (Zofran Inj) 4 mg IV.PUSH Q6H PRN PRN Reason: NAUSEA OR VOMITING Pravastatin Sodium (Pravachol) 40 mg PO HS [facility] Senna/Docusate Sodium (Virgen-Colace) 1 tab PO BID [facility] Last Admin: 11/01/17 09:41 Dose: Not Given Sennosides (Senokot) 17.2 mg PO Q12H PRN PRN Reason: Moderate Constipation Sodium Chloride (Ns Flush) 2 ml IV.FLUSH UNSCH PRN PRN Reason: FLUSH AFTER USING IV ACCESS Last Admin: 11/01/17 09:40 Dose: 2 ml Tamsulosin HCl (Flomax) 0.4 mg PO DAILY [facility] Last Admin: 11/01/17 09:40 Dose: 0.4 mg Temazepam (Restoril) 15 mg PO HS PRN PRN Reason: INSOMNIA Exam Vital signs: Vital Signs 10/31/17 23:23 10/31/17 23:46 11/01/17 00:16 Temperature 97.6 F Pulse Rate 89 68 69 Respiratory Rate 18 30 H Blood Pressure 115/55 L 111/65 Pulse Oximetry 95 92 L 11/01/17 00:45 11/01/17 01:00 11/01/17 02:00 Temperature Pulse Rate 68 68 68 Respiratory Rate 32 H 28 H 28 H Blood Pressure 102/56 L 110/63 139/67 Pulse Oximetry 96 94 L 96 11/01/17 02:30 11/01/17 03:00 11/01/17 04:00 Temperature Pulse Rate 68 68 68 Respiratory Rate 23 23 19 Blood Pressure 128/73 122/68 122/75 Pulse Oximetry 97 96 95 11/01/17 06:00 11/01/17 08:30 11/01/17 09:13 Temperature 97.9 F Pulse Rate 69 69 Respiratory Rate 20 31 H Blood Pressure 115/64 124/72 Pulse Oximetry 96 92 L 95 11/01/17 12:00 11/01/17 16:00 Temperature 97.7 F 97.0 F L Pulse Rate 69 69 Respiratory Rate 18 28 H Blood Pressure 141/80 H 114/57 L Pulse Oximetry 99 93 L Intake & Output 11/01/17 11/01/17 11/02/17 06:59 18:59 06:59 Intake Total 750 / 750 Output Total 100 / 100 Balance 650 / 650 Weight 78.018 kg Intake: Oral 750 / 750 Output: Urine 100 / 100 Other: # Voids 1 Date of Last Bowel Movement 11/01/17 # Bowel Movements 3 Results - Lab Results 11/01/17 00:10 11/01/17 00:10 Most recent lab results Calcium 8.9 mg/dL (8.5-10.1) 11/01/17 00:10 Magnesium 2.3 mg/dL (1.5-2.5) 11/01/17 00:10 Assessment and Plan - Assessment (1) Acute renal failure Code(s): N17.9 - Acute kidney failure, unspecified Status: Acute (2) CHF (congestive heart failure), NYHA class III Code(s): I50.9 - Heart failure, unspecified Status: Acute (3) Shortness of breath Code(s): R06.02 - Shortness of breath Status: Acute (4) HTN (hypertension) Code(s): I10 - Essential (primary) hypertension Status: Acute (5) A-fib Code(s): I48.91 - Unspecified atrial fibrillation Status: Acute - Attending Attestation patient was seen and examined. Agree with above assessment and plan. Continue diuresis. Avoid nephrotoxic agents, apparently he was taking Aleve at home, we have advised him to completely avoid NSAIDs. <Elyssa Hartley - Last Filed: 11/01/17 16:26> (2) CHF (congestive heart failure), NYHA class III Qualifiers: Congestive heart failure type: systolic Congestive heart failure chronicity: acute on chronic Qualified Code(s): I50.23 - Acute on chronic systolic ( congestive) heart failure (4) HTN (hypertension) Qualifiers: Hypertension type: essential hypertension Qualified Code(s): I10 - Essential (primary) hypertension <Jason Kebede - Last Filed: 11/01/17 19:38> (2) CHF (congestive heart failure), NYHA class III Qualifiers: Congestive heart failure type: systolic Congestive heart failure chronicity: acute on chronic Qualified Code(s): I50.23 - Acute on chronic systolic ( congestive) heart failure (4) HTN (hypertension) Qualifiers: Hypertension type: essential hypertension Qualified Code(s): I10 - Essential (primary) hypertension
--- NOTE | 2017-11-01 20:48 | ECG ---
Date Performed: 10/31/2017 Time Performed: 23:35:37 PTAGE: 82 years EKG: ELECTRONIC VENTRICULAR PACEMAKER ABNORMAL RHYTHM ECG NO PREVIOUS TRACING DOCTOR: Jaden Wilson Interpretating Date/Time 11/01/2017 20:46:30
[2017-11-01 21:31] LABS: Bilirubin,Urine Negative (Negative); Clarity,Urine Clear (Clear); Color,Urine Yellow (Yellw/Straw); Glucose,Urine (UA) Negative (Negative); Hyaline Casts,Urine 61 /lpf (0-3); Leukocyte Esterase,Urine Negative (Negative); Nitrite,Urine Negative (Negative); Specific Gravity,Urine 1.011 (1.002-1.035)
[2017-11-02 07:08] LABS: INR 3.9 Ratio; Prothrombin Time 39.2 sec (9.8-11.6)
[2017-11-02 07:36] LABS: Calcium 9.3 mg/dL (8.5-10.1); Carbon Dioxide 22.5 meq/L (21.0-32.0); Potassium 4.5 meq/L (3.5-5.1)
[2017-11-02] MEDS: Senna/Docusate Sodium 8.6/50 MG Tablet PO SCH ×2 (09:32→20:57)
[2017-11-02] MEDS: amLODIPine 10 MG Tablet PO SCH (09:32)
--- NOTE | 2017-11-02 11:32 | P.PNNP ---
Subjective Interval history: Looks much better. Transferred out ICU. Off oxygen. Renal function is better. <Elyssa Hartley - Last Filed: 11/02/17 11:21> Physical Exam Vital signs: Vital Signs 11/01/17 12:00 11/01/17 16:00 11/01/17 20:00 Temperature 97.7 F 97.0 F L Pulse Rate 69 69 Respiratory Rate 18 28 H Blood Pressure 141/80 H 114/57 L Pulse Oximetry 99 93 L 95 11/01/17 20:03 11/02/17 00:00 11/02/17 00:45 Temperature 98 F 98.1 F Pulse Rate 69 68 Respiratory Rate 27 H 30 H Blood Pressure 118/62 95/55 L Pulse Oximetry 95 92 L 90 L 11/02/17 04:00 11/02/17 08:00 Temperature 98.2 F 98.5 F Pulse Rate 69 69 Respiratory Rate 25 H Blood Pressure 109/64 145/57 H Pulse Oximetry 99 95 Intake & Output 11/01/17 11/02/17 11/02/17 18:59 06:59 18:59 Intake Total 750 / 750 200 / 200 Output Total 100 / 100 900 / 900 Balance 650 / 650 -700 / -700 Intake: Oral 750 / 750 200 / 200 Output: Urine 100 / 100 900 / 900 Other: # Voids 1 Date of Last Bowel Movement 11/01/17 11/01/17 11/01/17 # Bowel Movements 3 - Constitutional no acute distress - Routine HEENT Exam ENT: Present: mucous membranes moist - Routine Neck Exam Present: supple, full ROM. Absent: JVD - Routine Respiratory Exam Present: CTA bilaterally. Absent: accessory muscle use, respiratory distress - Routine Cardiovascular Exam Present: RRR, S1, S2 Comments: paced - Routine Abdominal Exam Present: soft, normoactive bowel sounds - Routine Extremities Exam Present: full ROM, pulses intact, normal capillary refill. Absent: edema - Routine Skin Exam Present: intact, warm - Routine Neurological Exam Present: alert, oriented X3, CN II-XII intact - Detailed Neurological Exam: Coma Scale Eye Opening: Spontaneous Verbal Response: Oriented Motor Response: Obey commands [place] Coma Scale Total: 15 - Routine Psychiatric Exam Present: normal affect, normal thought process <Elyssa Hartley - Last Filed: 11/02/17 11:21> Vital signs: Vital Signs 11/01/17 20:00 11/01/17 20:03 11/02/17 00:00 Temperature 98 F 98.1 F Pulse Rate 69 68 Respiratory Rate 27 H 30 H Blood Pressure 118/62 95/55 L Pulse Oximetry 95 95 92 L 11/02/17 00:45 11/02/17 04:00 11/02/17 08:00 Temperature 98.2 F 98.5 F Pulse Rate 69 69 Respiratory Rate 25 H Blood Pressure 109/64 145/57 H Pulse Oximetry 90 L 99 95 11/02/17 09:00 11/02/17 10:00 11/02/17 11:00 Temperature Pulse Rate 69 69 69 Respiratory Rate Blood Pressure Pulse Oximetry 11/02/17 12:00 11/02/17 13:00 11/02/17 14:00 Temperature 97.9 F Pulse Rate 69 68 68 Respiratory Rate 20 Blood Pressure 108/67 Pulse Oximetry 97 11/02/17 15:00 11/02/17 16:00 11/02/17 17:00 Temperature 98.0 F Pulse Rate 69 68 68 Respiratory Rate 20 Blood Pressure 112/67 Pulse Oximetry 94 L 11/02/17 17:30 11/02/17 18:00 Temperature 98.9 F Pulse Rate 70 68 Respiratory Rate 24 Blood Pressure 113/68 Pulse Oximetry 95 Intake & Output 11/02/17 11/02/17 11/03/17 06:59 18:59 06:59 Intake Total 200 / 200 640 / 640 Output Total 900 / 900 475 / 475 Balance -700 / -700 165 / 165 Intake: Oral 200 / 200 640 / 640 Output: Urine 900 / 900 475 / 475 Other: Date of Last Bowel Movement 11/01/17 11/01/17 <Jason Kebede - Last Filed: 11/02/17 19:38> Assessment and Plan - Assessment (1) Acute renal failure Code(s): N17.9 - Acute kidney failure, unspecified Status: Acute Plan: His baseline creatinine is 1.2 from last year. Has underlying nephrosclerosis. JEFF thought to be due to CHF and increased renal vein pressure. Renal function has improved He is non oliguric, on diuretics. See below. Potassium improved, would avoid KCL supplements in the future, he is on ARB. Mild acidosis also improved. Continue Flomax for BPH. Avoid nephrotoxic agents, was on NSAIDs at home, advised not to take them any longer. (2) CHF (congestive heart failure), NYHA class III Code(s): I50.9 - Heart failure, unspecified Status: Acute Qualifiers: Congestive heart failure type: systolic Congestive heart failure chronicity : acute on chronic Qualified Code(s): I50.23 - Acute on chronic systolic ( congestive) heart failure Plan: Cardiology has evaluated. EF 25% per echo On Bumex 1mg IV BID here. At discharge he should be on Lasix 40 mg PO BID for one week then resume once daily schedule. Monitor fluid status. Low salt diet. (3) Shortness of breath Code(s): R06.02 - Shortness of breath Status: Acute Plan: Improved, off oxygen. Thought to be due to CHF, he has small pleural effusion. Continue diuretics. Low Salt diet advised. (4) HTN (hypertension) Code(s): I10 - Essential (primary) hypertension Status: Acute Qualifiers: Hypertension type: essential hypertension Qualified Code(s): I10 - Essential (primary) hypertension Plan: Resume home medications (5) A-fib Code(s): I48.91 - Unspecified atrial fibrillation Status: Acute Qualifiers: Atrial fibrillation type: chronic Qualified Code(s): I48.2 - Chronic atrial fibrillation Plan: On Coumadin, INR supra therapeutic. Continue to hold Coumadin per hospitalist recommendations. - Plan Discharge Planning: Stable for discharge from renal perspective. <Elyssa Hartley - Last Filed: 11/02/17 11:21> - Assessment (1) Acute renal failure Code(s): N17.9 - Acute kidney failure, unspecified Status: Acute (2) CHF (congestive heart failure), NYHA class III Code(s): I50.9 - Heart failure, unspecified Status: Acute Qualifiers: Congestive heart failure type: systolic Congestive heart failure chronicity : acute on chronic Qualified Code(s): I50.23 - Acute on chronic systolic ( congestive) heart failure (3) Shortness of breath Code(s): R06.02 - Shortness of breath Status: Acute (4) HTN (hypertension) Code(s): I10 - Essential (primary) hypertension Status: Acute Qualifiers: Hypertension type: essential hypertension Qualified Code(s): I10 - Essential (primary) hypertension (5) A-fib Code(s): I48.91 - Unspecified atrial fibrillation Status: Acute Qualifiers: Atrial fibrillation type: chronic Qualified Code(s): I48.2 - Chronic atrial fibrillation - Attending Attestation patient was seen and examined. Agree with above assessment and plan. He can be discharged from renal standpoint. He is planning on going back to [place] where he will see his PCP and Magistrate Assistant. He should be discharged on Furosemide. He should not take any NSAIDs. <Jason Kebede - Last Filed: 11/02/17 19:38>
--- NOTE | 2017-11-02 12:42 | P.PNIM ---
Subjective Interval history: breathing better. no short of breath. Urinating better with more urine. soft stool frequency has slowed down. Physical Exam Vital signs: Vital Signs 11/01/17 16:00 11/01/17 20:00 11/01/17 20:03 Temperature 97.0 F L 98 F Pulse Rate 69 69 Respiratory Rate 28 H 27 H Blood Pressure 114/57 L 118/62 Pulse Oximetry 93 L 95 95 11/02/17 00:00 11/02/17 00:45 11/02/17 04:00 Temperature 98.1 F 98.2 F Pulse Rate 68 69 Respiratory Rate 30 H Blood Pressure 95/55 L 109/64 Pulse Oximetry 92 L 90 L 99 11/02/17 08:00 11/02/17 12:00 Temperature 98.5 F 97.9 F Pulse Rate 69 70 Respiratory Rate 25 H 20 Blood Pressure 145/57 H 108/67 Pulse Oximetry 95 97 Intake & Output 11/01/17 11/02/17 11/02/17 18:59 06:59 18:59 Intake Total 750 / 750 200 / 200 Output Total 100 / 100 900 / 900 Balance 650 / 650 -700 / -700 Intake: Oral 750 / 750 200 / 200 Output: Urine 100 / 100 900 / 900 Other: # Voids 1 Date of Last Bowel Movement 11/01/17 11/01/17 11/01/17 # Bowel Movements 3 Narrative: GENERAL: This is a well-nourished, well-developed patient, in no apparent distress. CARDIOVASCULAR: Regular rate and rhythm RESPIRATORY: few bibasilar crackles GASTROINTESTINAL: Abdomen soft, non-tender, nondistended. Normal active bowel sounds MUSCULOSKELETAL: Extremities without clubbing, cyanosis, trace edema NEURO: Alert & Oriented x4 to person, place, time, situation. Moves all ext x4 Results - Labs CBC & Chem 7: 11/01/17 00:10 11/02/17 05:46 Laboratory Results - last 24 hr 11/01/17 11/02/17 11/02/17 18:46 05:46 05:46 PT 39.2 H INR 3.9 Sodium 138 Potassium 4.5 D Chloride 104 Carbon Dioxide 22.5 Anion Gap 12 BUN 58 H Creatinine 1.92 H Estimated GFR 34 L Random Glucose 97 Calcium 9.3 Urine Color Yellow Urine Clarity Clear Urine pH 5.0 Ur Specific [place] 1.011 Urine Protein Negative Urine Glucose (UA) Negative Urine Ketones Negative Urine Occult Blood Negative Urine Nitrate Negative Urine Bilirubin Negative Urine Urobilinogen Less than 2 Ur Leukocyte Esterase Negative Hyaline Casts 61 Micro UA Comment Culture not ind Urine Culture Comments Culture not ind - Procedures none Assessment and Plan - Plan 1. CHF exacerbation, acute on chronic systolic IV Bumex and will switch to PO lasix upon discharge to home per Neprology Supplemental oxygen as needed, wean as tolerated. Strict I and O and monitor Fluid restriction clinically improving 2. Acute renal failure superimposed on CKD stage 3 Bumex IV given renal failure with Lasix Renal ultrasound reviewed Nephrology consulted, appreciate recommendations 3. Atrial fibrillation with Continue home medications Toprol for rate control Continue anticoagulation with Coumadin but held today due to INR supratherapeutic; consult pharmacy for assistance with Coumadin dosing, monitor INR 4. CAD/hypertension/hyperlipidemia/dementia Continue home medications, statin, toprol, Cozaar, Norvasc 5. FEN Renal diet Electrolytes: Monitor and replete as needed 6. DVT prophylaxis Coumadin on hold INR>3 Discharge Planning: possible d/c to home in am
--- NOTE | 2017-11-02 12:44 | P.DCO ---
- Home Health Nursing Order: CHF education, Nursing assessment with vital signs - Certification I have seen patient Ishmael Horn on 11/02/17. My clinical findings support the need for the requested home health care services because: Limited mobility due to disease progression I certify that my clinical findings support that this patient is homebound because: Poor cardiac reserve
[2017-11-03 06:14] LABS: INR 2.5 Ratio; Prothrombin Time 25.4 sec (9.8-11.6)
[2017-11-03 06:38] LABS: Carbon Dioxide 24.4 meq/L (21.0-32.0); Potassium 3.6 meq/L (3.5-5.1)
[2017-11-03] MEDS: Senna/Docusate Sodium 8.6/50 MG Tablet PO SCH (09:11)
[2017-11-03] MEDS: amLODIPine 10 MG Tablet PO SCH (09:12)
--- NOTE | 2017-11-03 11:15 | P.DS ---
Date of admission: 11/01/17 03:08 Primary care physician: No Primary Care Physician Brief History from admission: 82-year-old male with a past medical history significant for atrial fibrillation anticoagulated on Coumadin, coronary artery disease, hypertension, hyperlipidemia, CHF and dementia presents to the emergency department for the evaluation of neck pain and shortness of breath. 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 He states his neck pain has worsened and he now has numbness and tingling in the back of his neck. He denies any paresthesias down the upper extremities. He also endorses insomnia with shortness of breath, PND and dyspnea on exertion. He denies any weakness or fatigue. Denies any worsening edema. No chest pain. No fevers/chills. No abdominal pain. No nausea/vomiting/diarrhea. No lateralizing signs/symptoms. DS: Diagnosis - Discharge Diagnosis (1) A-fib Status: Acute (2) Acute renal failure Status: Acute (3) CHF (congestive heart failure), NYHA class III Status: Acute (4) HTN (hypertension) Status: Acute (5) Shortness of breath Status: Acute DS: Summary Hospital Course: Update at DC : [place]. Says she feels imprpved and wants to go home; Sattig well no sob, no cp, n/v/d/c. No lightheadedness. 82-year-old male with a past medical history significant for atrial fibrillation anticoagulated on Coumadin, coronary artery disease, hypertension, hyperlipidemia, CHF and dementia presents to the emergency department for the evaluation of neck pain and shortness of breath. 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 Patient with acute exacerbation of systolic CHF with low EF has a pm/aicd. Also with acute on chronic CKD 3. The patient was diuresed. Improved was DC home in stable condition to follow up as oP with PCP and consultants. 1. CHF exacerbation, acute on chronic systolic with EF on recent echo 10/13/17 EF of 25% patient has an aicd/pm Received IV Bumex and will switched to PO lasix upon discharge to home per Neprology Supplemental oxygen as needed, wean as tolerated. Strict I and O and monitor Fluid restriction clinically improving 2. Acute renal failure superimposed on CKD stage 3 Bumex IV given renal failure with Lasix Renal ultrasound reviewed Nephrology consulted, appreciate recommendations 3. Atrial fibrillation Continue home medications Toprol for rate control Continue anticoagulation with Coumadin but held today due to INR supratherapeutic; consult pharmacy for assistance with Coumadin dosing, monitor INR 4. CAD/hypertension/hyperlipidemia/dementia Continue home medications, statin, toprol, Cozaar, Norvasc 5. FEN Renal diet Electrolytes: Monitor and replete as needed 6. DVT prophylaxis Coumadin on hold INR>3 Discharge Planning: IMPROVING DC home in stable condition to follow up as OP with PCP and consultants. - Time Spent with Patient Total time spent providing and/or coordinating discharge services: Greater than 30 minutes Exam Vital signs: Vital Signs 11/02/17 12:00 11/02/17 13:00 11/02/17 14:00 Temperature 97.9 F Pulse Rate 69 68 68 Respiratory Rate 20 Blood Pressure 108/67 Pulse Oximetry 97 11/02/17 15:00 11/02/17 16:00 11/02/17 17:00 Temperature 98.0 F Pulse Rate 69 68 68 Respiratory Rate 20 Blood Pressure 112/67 Pulse Oximetry 94 L 11/02/17 17:30 11/02/17 18:00 11/02/17 19:00 Temperature 98.9 F 98.0 F Pulse Rate 70 68 64 Respiratory Rate 24 30 H Blood Pressure 113/68 110/63 Pulse Oximetry 95 95 11/02/17 20:00 11/02/17 21:00 11/02/17 21:31 Temperature Pulse Rate 70 69 Respiratory Rate Blood Pressure Pulse Oximetry 95 95 11/02/17 22:00 11/02/17 23:00 11/03/17 00:00 Temperature 97.8 F Pulse Rate 70 69 72 Respiratory Rate 24 Blood Pressure 105/67 Pulse Oximetry 92 L 11/03/17 01:00 11/03/17 02:00 11/03/17 03:00 Temperature 98.1 F Pulse Rate 71 74 70 Respiratory Rate 20 Blood Pressure 109/70 Pulse Oximetry 95 11/03/17 04:00 11/03/17 05:00 11/03/17 06:00 Temperature Pulse Rate 73 68 70 Respiratory Rate 16 Blood Pressure Pulse Oximetry 11/03/17 07:00 11/03/17 08:00 Temperature 98.0 F Pulse Rate 69 Respiratory Rate 18 Blood Pressure 115/71 Pulse Oximetry 94 L 94 L Intake & Output 11/02/17 11/03/17 11/03/17 18:59 06:59 18:59 Intake Total 640 / 640 620 / 620 Output Total 475 / 475 500 / 500 Balance 165 / 165 120 / 120 Weight 78.8 kg Intake: Oral 640 / 640 620 / 620 Output: Urine 475 / 475 500 / 500 Other: # Voids 3 Date of Last Bowel Movement 11/01/17 11/02/17 Narrative: GENERAL: This is a very pleasant elderly male appearing younger than the stated age ,well-nourished, well-developed , in no apparent distress. CARDIOVASCULAR: Regular rate and rhythm RESPIRATORY: CTAB. NO wheezing. GASTROINTESTINAL: Abdomen soft, non-tender, nondistended. Normal active bowel sounds MUSCULOSKELETAL: Extremities without clubbing, cyanosis, trace edema NEURO: Alert & Oriented x4 to person, place, time, situation. Moves all ext x4 Results Procedures completed during hospitalization: none Labs on day of discharge: Labs from last 24 hours 11/03/17 11/03/17 04:35 04:35 PT 25.4 H D INR 2.5 Sodium 138 Potassium 3.6 D Chloride 102 Carbon Dioxide 24.4 Anion Gap 12 BUN 59 H Creatinine 1.67 H Estimated GFR 39 L Random Glucose 87 Calcium 9.0 - Impressions ITS Impressions Chest X-Ray 10/31/17 23:46 CONCLUSION: Cardiomegaly with small left pleural effusion. Postoperative changes above. Abdomen/Bladder Ultrasound 11/01/17 00:00 CONCLUSION: 1. Small right renal cyst and pleural effusion. Cervical Spine CT 11/01/17 00:00 CONCLUSION: 1. Degenerative change. No acute findings. Sign report Head CT 11/01/17 04:33 CONCLUSION: 1. No acute intracranial abnormalities. Cortical volume loss. Discharge Plan - Discharge Disposition Patient Disposition: 01 Discharge Home - Discharge Condition Condition: Stable - Discharge Order Discharge Orders: Discharge Order (Routine); Ordered 11/03/17 Ordered By: Loly Mtz - Discharge Details Anticipated Discharge Date: 11/03/17 - Physicians Team Primary Care Provider: Primary Care Noni,Jessica Attending Provider: Loly Mtz Other Providers: Jason Kebede MD
== END 2017-11-03 12:47 | disposition home or self-care (01) ==
LOC: NEPE 22:38 → NEDA 11-01 03:08 → N03 11-01 08:30 → HCIS 11-02 09:04
PROVIDERS: ADMIT Hospitalist; ATTEND Hospitalist

== ENCOUNTER 2017-11-08 20:29 | Inpatient (IN) ==
--- NOTE | 2017-11-08 23:25 | ED ---
HPI General Chief Complaint: Chest Pain Stated Complaint: SOB Time Seen by Provider: 11/08/17 23:06 History of Present Illness HPI narrative: 82-year-old male presents to the emergency department for complaint of chest pain and shortness of breath 1 day. Patient is noted some pedal edema. Patient has history of CAD CABG atrial fibrillation on warfarin therapy and history of CHF with cardiomyopathy EF of 25% and pacemaker defibrillator. Patient does not report any defibrillations. Patient has had no fever chills. Patient took morning medications but does not know what medications he actually took. Patient does not report any increased bruising or bleeding. Patient rates chest pain as moderate to mild. Patient was recently hospitalized approximately a week ago for exacerbation of his CHF with chest pain and shortness of breath. Patient also has chronic renal insufficiency/chronic kidney disease. Patient's had no fever chills. Patient has no known reported history of COPD/emphysema. Patient is a non-smoker. Patient is able to identify exacerbating or alleviating factors. Patient did not take his evening medication. Patient's states that he and his had driven to [place] today and because he felt short of breath they decided not to be seen in the [place] area by a healthcare provider but did drive all the way back to [facility] to be evaluated. Patient is taken no medications this evening and does not have his medications with him or his medication list as that is at home. Patient also has reported history of dementia. Complete Quality Measures for STEMI Alert Patients Related Data Home Medications Medication Instructions Recorded Confirmed acetaminophen 1 tab PO Q4HR PRN 11/01/17 11/09/17 albuterol sulfate [Ventolin HFA] 2 puff INHALATION DAILY PRN 11/01/17 11/09/17 amlodipine 10 mg PO DAILY 11/01/17 11/09/17 aspirin 81 mg PO DAILY 11/01/17 11/09/17 cyanocobalamin (vitamin B-12) 2,000 mcg PO DAILY 11/01/17 11/09/17 [Vitamin B-12] donepezil 5 mg PO DAILY 11/01/17 11/09/17 furosemide 40 mg PO BID 11/01/17 11/09/17 losartan 25 mg PO DAILY 11/01/17 11/09/17 metoprolol succinate 25 mg PO BID 11/01/17 11/09/17 potassium chloride 20 meq PO BID 11/01/17 11/09/17 ranitidine HCl 300 mg PO DAILY 11/01/17 11/09/17 simvastatin 20 mg PO QPM 11/01/17 11/09/17 tamsulosin 0.4 mg PO DAILY 11/01/17 11/09/17 warfarin 4 mg PO DAILY 11/01/17 11/09/17 Allergies Allergy/AdvReac Type Severity Reaction Status Date / Time No Known Allergies Allergy Verified 10/31/17 23:28 Review of Systems Except as stated in HPI: all other systems reviewed are negative PMFSH History History Provided By: Medical Record Medical History Medical History Atrial fibrillation (Acute) COPD (chronic obstructive pulmonary disease) (Acute) Hypertension (Acute) Coronary artery disease (Acute) Congestive heart failure (Acute) Dementia (Acute) Surgical History Surgical History History of knee replacement procedure of left knee (Acute) History of knee replacement procedure of right knee (Acute) S/P CABG x 4 (Acute) Hx of appendectomy (Acute) Hx of cholecystectomy (Acute) Social History Social History Substance History: No History of Abuse Second Hand Smoke Exposure: No Smoking Status: Former smoker Tobacco Type: Cigarettes How Often Do You Have a Drink Containing Alcohol: Monthly or less Recent Travel in [facility] within the Last 8 Weeks: No Recent Out of Country Travel within the Last 8 Weeks: No Exam Narrative Exam Narrative: GENERAL: Well-nourished, well-developed patient. Appears mildly to moderately dyspneic. SKIN: Focused skin assessment warm/dry. HEAD: Normocephalic. EYES: No scleral icterus. No injection or drainage. NECK: Supple, trachea midline. No JVD or lymphadenopathy. CARDIOVASCULAR: Regular rate and rhythm without murmurs, gallops, or rubs. RESPIRATORY: Breath sounds equal bilaterally bibasilarly diminished breath sounds few midlung crackles. No accessory muscle use. GASTROINTESTINAL: Abdomen soft, non-tender, nondistended. MUSCULOSKELETAL: No cyanosis, bilateral pedal edema. BACK: Nontender without obvious deformity. No CVA tenderness. Course Consultations Consultation #1: discussed with KAVIN CULP for admission Initial Documented Vital Signs Temperature 97.6 F 11/08/17 21:11 Pulse Rate 74 11/08/17 21:11 Respiratory Rate 20 11/08/17 21:11 Blood Pressure 113/53 L 11/08/17 21:11 Pulse Oximetry 92 L 11/08/17 21:11 Last Documented Vital Signs Temperature 97.6 F 11/08/17 21:11 Pulse Rate 69 11/09/17 00:14 Respiratory Rate 26 H 11/09/17 00:14 Blood Pressure 128/96 H 11/09/17 00:14 Pulse Oximetry 93 L 11/09/17 00:14 Medical Decision Making MDM Narrative Medical decision making narrative: 82-year-old male with known CHF CAD renal failure hypertension A. fib with decreased ejection fraction of 25% presents with symptomatic shortness of breath and chest pain; patient placed on equipment monitor phototypesetting with continuous pulse oximetry supplemental oxygen 2 L/min nasal cannula administered Lasix 20 mg IV ordered along Nitropaste 1/2 inch to chest wall and aspirin 162 mg. EKG chest x-ray basic labs ordered. Medical Records Medical records reviewed: Yes I reviewed the patient's medical records. Lab Data Result diagrams: 11/08/17 23:50 11/08/17 23:50 Lab Results 11/08/17 11/08/17 11/08/17 Range/Units 23:50 23:50 23:50 WBC 8.1 (4.0-11.0) th/mm3 RBC 4.73 (4.50-5.90) mil/mm3 Hgb 12.0 L (13.0-17.0) gm/dL Hct 37.7 L (39.0-51.0) % MCV 79.7 L (80.0-100.0) fL MCH 25.3 L (27.0-34.0) pg MCHC 31.7 L (32.0-36.0) % RDW 18.8 H (11.6-17.2) % Plt Count 176 (150-450) th/mm3 MPV 8.9 (7.0-11.0) fL Neut % (Auto) 75.6 H (16.0-70.0) % Lymph % (Auto) 14.2 (9.0-44.0) % [place] % (Auto) 8.1 H (0.0-8.0) % Eos % (Auto) 1.1 (0.0-4.0) % Baso % (Auto) 1.0 (0.0-2.0) % Neut # (Auto) 6.1 (1.8-7.7) th/mm3 Lymph # (Auto) 1.1 (1.0-4.8) th/mm3 [place] # (Auto) 0.7 (0.0-0.9) th/mm3 Eos # (Auto) 0.1 (0.0-0.4) th/mm3 Baso # (Auto) 0.1 (0.0-0.2) th/mm3 WBC Differential . Differential Comment Auto diff final PT 34.7 H (9.8-11.6) sec INR 3.4 Ratio Sodium 139 (136-145) meq/L Potassium 4.4 (3.5-5.1) meq/L Chloride 104 (98-107) meq/L Carbon Dioxide 24.1 (21.0-32.0) meq/L Anion Gap 11 (5-15) meq/L BUN 32 H (7-18) mg/dL Creatinine 1.82 H (0.60-1.30) mg/dL Estimated GFR 36 L (>89) mL/min Random Glucose 117 H (74-106) mg/dL Calcium 8.6 (8.5-10.1) mg/dL Magnesium 2.2 (1.5-2.5) mg/dL Total Creatine Kinase 78 (39-308) U/L Troponin I Less than 0.02 L (0.02-0.05) ng/mL B-Natriuretic Peptide (0-100) pg/mL Urine Color (Yellw/Straw) Urine Clarity (Clear) Urine pH (5.0-8.5) Ur Specific [place] (1.002-1.035) Urine Protein (Neg-Trace) mg/dL Urine Glucose (UA) (Negative) mg/dL Urine Ketones (Negative) mg/dL Urine Occult Blood (Negative) Urine Nitrate (Negative) Urine Bilirubin (Negative) Urine Urobilinogen (Less than 2) mg/dL Ur Leukocyte Esterase (Negative) Urine RBC (0-3) /hpf Urine WBC (0-5) /hpf Urine WBC Clumps (None) Urine Bacteria (None) /hpf 11/08/17 11/09/17 Range/Units 23:50 00:35 WBC (4.0-11.0) th/mm3 RBC (4.50-5.90) mil/mm3 Hgb (13.0-17.0) gm/dL Hct (39.0-51.0) % MCV (80.0-100.0) fL MCH (27.0-34.0) pg MCHC (32.0-36.0) % RDW (11.6-17.2) % Plt Count (150-450) th/mm3 MPV (7.0-11.0) fL Neut % (Auto) (16.0-70.0) % Lymph % (Auto) (9.0-44.0) % [place] % (Auto) (0.0-8.0) % Eos % (Auto) (0.0-4.0) % Baso % (Auto) (0.0-2.0) % Neut # (Auto) (1.8-7.7) th/mm3 Lymph # (Auto) (1.0-4.8) th/mm3 [place] # (Auto) (0.0-0.9) th/mm3 Eos # (Auto) (0.0-0.4) th/mm3 Baso # (Auto) (0.0-0.2) th/mm3 WBC Differential Differential Comment PT (9.8-11.6) sec INR Ratio Sodium (136-145) meq/L Potassium (3.5-5.1) meq/L Chloride (98-107) meq/L Carbon Dioxide (21.0-32.0) meq/L Anion Gap (5-15) meq/L BUN (7-18) mg/dL Creatinine (0.60-1.30) mg/dL Estimated GFR (>89) mL/min Random Glucose (74-106) mg/dL Calcium (8.5-10.1) mg/dL Magnesium (1.5-2.5) mg/dL Total Creatine Kinase (39-308) U/L Troponin I (0.02-0.05) ng/mL B-Natriuretic Peptide 1663 H (0-100) pg/mL Urine Color Red (Yellw/Straw) Urine Clarity Hazy H (Clear) Urine pH 6.0 (5.0-8.5) Ur Specific [place] 1.015 (1.002-1.035) Urine Protein 100 H (Neg-Trace) mg/dL Urine Glucose (UA) Negative (Negative) mg/dL Urine Ketones Negative (Negative) mg/dL Urine Occult Blood Large H (Negative) Urine Nitrate Negative (Negative) Urine Bilirubin Negative (Negative) Urine Urobilinogen Less than 2 (Less than 2) mg/dL Ur Leukocyte Esterase Negative (Negative) Urine RBC (0-3) /hpf Urine WBC 40 H (0-5) /hpf Urine WBC Clumps Occasional H (None) Urine Bacteria Occasional H (None) /hpf Imaging Data Radiologist's impression: Chest X-Ray 11/08/17 23:15 CONCLUSION: 1. Stable appearance of the chest with compensated cardiomegaly. 2. Left basilar atelectasis/airspace disease with associated small effusion. Again, unchanged. 3. Postsurgical changes of CABG. Probable clip on the left atrial appendage. ECG Data EKG Prior to Arrival: No Attestation: I personally reviewed and interpreted this ECG as follows: Prior ECG tracings: available for review Interpretation: EKG: Electronically paced rhythm rate 70 Discharge Plan Discharge Disposition Patient Disposition: 30 Still Patient Discharge Condition Condition: Stable Discharge Details Diagnosis: Congestive heart failure, Coronary artery disease, Chest pain, Acute on chronic renal failure, Hematuria Physicians Team ED Provider: Muriel Colmenares Rxs /Orders / Referrals /Forms Prescriptions: No Action furosemide 40 mg Tablet 40 mg PO BID RF: 0 acetaminophen 325 mg Tablet 1 tab PO Q4HR PRN (Reason: Pain (Scale Score 1-3)) RF: 0 donepezil 5 mg Tablet 5 mg PO DAILY RF: 0 aspirin 81 mg Tablet,Delayed Release (Dr/Ec) 81 mg PO DAILY RF: 0 warfarin 4 mg Tablet 4 mg PO DAILY RF: 0 tamsulosin 0.4 mg Capsule,Extended Release 24hr 0.4 mg PO DAILY RF: 0 amlodipine 10 mg Tablet 10 mg PO DAILY RF: 0 simvastatin 20 mg Tablet 20 mg PO QPM RF: 0 ranitidine HCl 300 mg Capsule 300 mg PO DAILY RF: 0 losartan 25 mg Tablet 25 mg PO DAILY RF: 0 cyanocobalamin (vitamin B-12) [Vitamin B-12] 2,000 mcg Tablet Extended Release 2,000 mcg PO DAILY RF: 0 metoprolol succinate 25 mg Tablet Extended Release 24 Hr 25 mg PO BID RF: 0 albuterol sulfate [Ventolin HFA] 90 mcg/actuation Hfa Aerosol Inhaler 2 puff Inhalation DAILY PRN (Reason: Shortness Of Breath Or Wheezing) RF: 0 potassium chloride 20 mEq Tablet Extended Release 20 meq PO BID RF: 0 Discharge Instructions Patient Printed Instructions: Chest Pain (ED) Status ED Status: With Doctor
[2017-11-09 00:06] LABS: Baso # (Auto) 0.1 th/mm3 (0.0-0.2); Eos # (Auto) 0.1 th/mm3 (0.0-0.4); Eos % (Auto) 1.1 % (0.0-4.0); Hematocrit 37.7 % (39.0-51.0); Lymph # (Auto) 1.1 th/mm3 (1.0-4.8); Lymph % (Auto) 14.2 % (9.0-44.0); Mean Corpuscular HGB Conc 31.7 % (32.0-36.0); Mean Corpuscular Hemoglobin 25.3 pg (27.0-34.0); Mean Corpuscular Volume 79.7 fL (80.0-100.0); Mean Platelet Volume 8.9 fL (7.0-11.0); Mono # (Auto) 0.7 th/mm3 (0.0-0.9); Mono % (Auto) 8.1 % (0.0-8.0); Neut # (Auto) 6.1 th/mm3 (1.8-7.7); Neut % (Auto) 75.6 % (16.0-70.0); Platelet Count 176 th/mm3 (150-450); Red Blood Count 4.73 mil/mm3 (4.50-5.90); Red Cell Distribution Width 18.8 % (11.6-17.2); White Blood Count 8.1 th/mm3 (4.0-11.0)
[2017-11-09 00:14] LABS: INR 3.4 Ratio; Prothrombin Time 34.7 sec (9.8-11.6)
[2017-11-09 00:18] LABS: Anion Gap 11 meq/L (5-15); Blood Urea Nitrogen 32 mg/dL (7-18); Calcium 8.6 mg/dL (8.5-10.1); Carbon Dioxide 24.1 meq/L (21.0-32.0); Chloride 104 meq/L (98-107); Glomerular Filtration Rate 36 mL/min (>89); Glucose,Random 117 mg/dL (74-106); Magnesium 2.2 mg/dL (1.5-2.5); Potassium 4.4 meq/L (3.5-5.1); Sodium 139 meq/L (136-145)
[2017-11-09 00:23] LABS: Creatine Kinase 78 U/L (39-308)
--- NOTE | 2017-11-09 00:27 | XR ---
EXAM DATE: 11/08/2017 11:37 PM EDT AGE/SEX: 82 years / Male INDICATIONS: Shortness of breath. CLINICAL DATA: This is the patient's initial encounter. Patient reports that signs and symptoms have been present for 1 day and indicates a pain score of 0/10. MEDICAL/SURGICAL HISTORY: Hypertension. Myocardial infarction. CABG. Pacemaker. [place]PAR[place] [facility] [place] 1[place] SING[place], 11/01/[place]. . FINDINGS: A single AP view of the chest demonstrates stable cardiomegaly. Intact median sternotomy wires. Left basilar atelectasis with probable associated effusion. Right lung is grossly clear. Left subclavian u nipolar pacer is radiographically intact. Findings of prior CABG with coronary ostial rings. There is probably a clip on the left atrial appendage. CONCLUSION: 1. Stable appearance of the chest with compensated cardiomegaly. 2. Left basilar atelectasis/airspace disease with associated small effusion. Again, unchanged. 3. Postsurgical changes of CABG. Probable clip on the left atrial appendage. Electronically signed by: Armando Feng MD 11/09/2017 12:26 AM EDT
[2017-11-09 01:39] LABS: Bacteria,Urine Occasional /hpf; Bilirubin,Urine Negative (Negative); Clarity,Urine Hazy (Clear); Color,Urine Red (Yellw/Straw); Glucose,Urine (UA) Negative (Negative); Leukocyte Esterase,Urine Negative (Negative); Nitrite,Urine Negative (Negative); Specific Gravity,Urine 1.015 (1.002-1.035)
[2017-11-09] MEDS ORDERED: Heparin - SQ 10,000 UNITS/ML Vial SQ SCH (01:45)
--- NOTE | 2017-11-09 02:00 | P.HP ---
History of Present Illness Service: [facility] Primary Care Physician: Deyvi Lima History of Present Illness: 82-year-old male with a past medical history significant for atrial fibrillation anticoagulated on Coumadin, coronary artery disease (status post CABG 3 in April), hypertension, hyperlipidemia, CHF and dementia presents to the emergency department for the evaluation of shortness of breath and chest pain. The patient and his had driven to care for earlier today but because he felt short of breath they returned to [facility] to be evaluated. The patient describes his chest pain as a substernal pressure that is nonradiating. He was hospitalized a week ago for CHF exacerbation and discharged home. The patient reports he has been drinking a lot of water lately. He states no one ever told him to restrict his fluids. He also states that he took some of his medications at night that were his morning meds and he missed his morning meds. He is unsure of which medications he took. His states that she usually controls his medications but is unsure of exactly what medications he took. Review of Systems Denies fever or chills Denies blurry vision, otorrhea, rhinorrhea Denies sore throat and cough No abdominal pain Denies constipation/diarrhea/nausea/vomiting Denies muscle pain Denies focal weakness No rashes PMFSH - History History Provided By: Medical Record - Medical History Medical History: Medical History (Last Updated 11/08/17 @ 23:59 by Maggie Buitrago) Atrial fibrillation (Acute) COPD (chronic obstructive pulmonary disease) (Acute) Hypertension (Acute) Coronary artery disease (Acute) Congestive heart failure (Acute) Dementia (Acute) - Surgical History Surgical History: Surgical History (Last Updated 11/08/17 @ 23:59 by Maggie Buitrago) History of knee replacement procedure of left knee (Acute) History of knee replacement procedure of right knee (Acute) S/P CABG x 4 (Acute) Hx of appendectomy Hx of cholecystectomy - Tobacco History Second Hand Smoke Exposure: No Tobacco Use In Past 30 Days: No Smoking Status: Former smoker Tobacco Type: Cigarettes - Alcohol History How Often Do You Have a Drink Containing Alcohol: Monthly or less - Substance Use History Substance History: No History of Abuse - Travel History Recent Travel in the [place] Within the Last 8 Weeks: No Recent Travel Out of the Country Within the Last 8 Weeks: No - Immunization History Tetanus Immunization: Unsure Hx Influenza Vaccine This Season: Yes Medications and Allergies Active Medications: Active Medications Amlodipine Besylate (Norvasc) 10 mg PO DAILY [facility] Aspirin (Ecotrin) 81 mg PO DAILY [facility] Donepezil HCl (Aricept) 5 mg PO DAILY [facility] Furosemide (Lasix Inj) 20 mg IV.PUSH BID@0900,1800 [facility] Losartan Potassium (Cozaar) 25 mg PO DAILY [facility] Metoprolol Succinate (Toprol Xl) 25 mg PO BID [facility] Non-Formulary Medication (Albuterol Hfa Inh) 2 puff INHALATION DAILY PRN PRN Reason: Shortness Of Breath Or Wheezing Non-Formulary Medication (Cyanocobalamin (Vitamin B-12) [Vitamin B-12]) 2,000 mcg PO DAILY [facility] Non-Formulary Medication (Potassium Chloride [Potassium Chloride]) 20 meq PO BID [facility] Non-Formulary Medication (Simvastatin [Simvastatin]) 20 mg PO QPM [facility] Non-Formulary Medication (Ranitidine Hcl [Ranitidine Hcl]) 300 mg PO DAILY [facility] Ondansetron HCl (Zofran Odt) 4 mg PO Q6H PRN PRN Reason: NAUSEA OR VOMITING Sodium Chloride (Ns Flush) 2 ml IV.FLUSH BID [facility] Sodium Chloride (Ns Flush) 2 ml IV.FLUSH UNSCH PRN PRN Reason: FLUSH AFTER USING IV ACCESS Tamsulosin HCl (Flomax) 0.4 mg PO DAILY [facility] Warfarin Sodium (Coumadin) 4 mg PO DAILY@1600 [facility] Allergies Allergy/AdvReac Type Severity Reaction Status Date / Time No Known Allergies Allergy Verified 10/31/17 23:28 Home Medications Medication Instructions Recorded Confirmed Type acetaminophen 1 tab PO Q4HR PRN 11/01/17 11/09/17 History albuterol sulfate [Ventolin HFA] 2 puff INHALATION DAILY PRN 11/01/17 11/09/17 History amlodipine 10 mg PO DAILY 11/01/17 11/09/17 History aspirin 81 mg PO DAILY 11/01/17 11/09/17 History cyanocobalamin (vitamin B-12) 2,000 mcg PO DAILY 11/01/17 11/09/17 History [Vitamin B-12] donepezil 5 mg PO DAILY 11/01/17 11/09/17 History furosemide 40 mg PO BID 11/01/17 11/09/17 History losartan 25 mg PO DAILY 11/01/17 11/09/17 History metoprolol succinate 25 mg PO BID 11/01/17 11/09/17 History potassium chloride 20 meq PO BID 11/01/17 11/09/17 History ranitidine HCl 300 mg PO DAILY 11/01/17 11/09/17 History simvastatin 20 mg PO QPM 11/01/17 11/09/17 History tamsulosin 0.4 mg PO DAILY 11/01/17 11/09/17 History warfarin 4 mg PO DAILY 11/01/17 11/09/17 History Exam Vital signs: Vital Signs 11/08/17 21:11 11/08/17 23:14 11/09/17 00:14 Temperature 97.6 F Pulse Rate 74 69 Respiratory Rate 20 26 H Blood Pressure 113/53 L 128/96 H Pulse Oximetry 92 L 93 L 93 L Intake & Output 11/08/17 11/08/17 11/09/17 06:59 18:59 06:59 Weight 78.471 kg Narrative: Gen.: No acute distress. Sitting up in bed. Head: Normocephalic. Atraumatic. EENT: Pupils equal round and reactive to light. Nose without drainage. Airway intact. Throat without injection. Cardiovascular: Regular rate and rhythm. 3/6 murmur Respiratory: Lungs clear to auscultation bilaterally. No wheezes or rhonchi. Abdomen: Soft, nontender, nondistended. No peritoneal signs. Musculoskeletal: No gross deformities. No edema. Skin: No obvious rashes or erythema. Neuro: Sensory and motor grossly intact. Cranial nerves II through XII grossly intact. Results - Labs CBC & Chem 7: 11/08/17 23:50 11/08/17 23:50 Labs: Laboratory Results - last 24 hr 11/08/17 11/08/17 11/08/17 23:50 23:50 23:50 WBC 8.1 RBC 4.73 Hgb 12.0 L Hct 37.7 L MCV 79.7 L MCH 25.3 L MCHC 31.7 L RDW 18.8 H Plt Count 176 MPV 8.9 Neut % (Auto) 75.6 H Lymph % (Auto) 14.2 [place] % (Auto) 8.1 H Eos % (Auto) 1.1 Baso % (Auto) 1.0 Neut # (Auto) 6.1 Lymph # (Auto) 1.1 [place] # (Auto) 0.7 Eos # (Auto) 0.1 Baso # (Auto) 0.1 WBC Differential . Differential Comment Auto diff final PT 34.7 H INR 3.4 Sodium 139 Potassium 4.4 Chloride 104 Carbon Dioxide 24.1 Anion Gap 11 BUN 32 H Creatinine 1.82 H Estimated GFR 36 L Random Glucose 117 H Calcium 8.6 Magnesium 2.2 Total Creatine Kinase 78 Troponin I Less than 0.02 L B-Natriuretic Peptide Urine Color Urine Clarity Urine pH Ur Specific [place] Urine Protein Urine Glucose (UA) Urine Ketones Urine Occult Blood Urine Nitrate Urine Bilirubin Urine Urobilinogen Ur Leukocyte Esterase Urine RBC Urine WBC Urine WBC Clumps Urine Bacteria 11/08/17 11/09/17 23:50 00:35 WBC RBC Hgb Hct MCV MCH MCHC RDW Plt Count MPV Neut % (Auto) Lymph % (Auto) [place] % (Auto) Eos % (Auto) Baso % (Auto) Neut # (Auto) Lymph # (Auto) [place] # (Auto) Eos # (Auto) Baso # (Auto) WBC Differential Differential Comment PT INR Sodium Potassium Chloride Carbon Dioxide Anion Gap BUN Creatinine Estimated GFR Random Glucose Calcium Magnesium Total Creatine Kinase Troponin I B-Natriuretic Peptide 1663 H Urine Color Red Urine Clarity Hazy H Urine pH 6.0 Ur Specific [place] 1.015 Urine Protein 100 H Urine Glucose (UA) Negative Urine Ketones Negative Urine Occult Blood Large H Urine Nitrate Negative Urine Bilirubin Negative Urine Urobilinogen Less than 2 Ur Leukocyte Esterase Negative Urine RBC Urine WBC 40 H Urine WBC Clumps Occasional H Urine Bacteria Occasional H - Imaging Impressions Chest X-Ray 11/08/17 23:15 CONCLUSION: 1. Stable appearance of the chest with compensated cardiomegaly. 2. Left basilar atelectasis/airspace disease with associated small effusion. Again, unchanged. 3. Postsurgical changes of CABG. Probable clip on the left atrial appendage. Caprini VTE Risk Assessment Caprini VTE Risk Assessment: Moderate/High Risk (score >= 2) Caprini Risk Assessment Model: Point Value = 1 Point Value = 2 Point Value = 3 Point Value = 5 Age 41-60 Minor surgery BMI > 25 kg/m2 Swollen legs Varicose veins or History of unexplained or recurrent spontaneous Oral contraceptives or hormone replacement Sepsis (< 1 month) Serious lung disease, including pneumonia (< 1 month) Abnormal pulmonary function Acute myocardial infarction Congestive heart failure (< 1 month) History of inflammatory bowel disease Medical patient at bed rest Age 61-74 Arthroscopic surgery Major open surgery (> 45 min) Laparoscopic surgery (> 45 min) Malignancy Confined to bed (> 72 hours) Immobilizing plaster cast Central venous access Age >= 75 History of VTE Family history of VTE Factor V Leiden Prothrombin [id number] Lupus anticoagulant Anticardiolipin antibodies Elevated serum homocysteine Heparin-induced thrombocytopenia Other congenital or acquired thrombophilia Stroke (< 1 month) Elective arthroplasty Hip, pelvis, or leg fracture Acute spinal cord injury (< 1 month) Prophylaxis Regimen: Total Risk Factor Score Risk Level Prophylaxis Regimen 0-1 Low Early ambulation 2 Moderate Order ONE of the following: *Sequential Compression Device (SCD) *Heparin 5000 units SQ BID 3-4 Higher Order ONE of the following medications: *Heparin 5000 units SQ TID *Enoxaparin/Lovenox 40 mg SQ daily (WT < 150 kg, CrCl > 30 mL/min) *Enoxaparin/Lovenox 30 mg SQ daily (WT < 150 kg, CrCl > 10-29 mL/min) *Enoxaparin/Lovenox 30 mg SQ BID (WT < 150 kg, CrCl > 30 mL/min) AND/OR *Sequential Compression Device (SCD) 5 or more Highest Order ONE of the following medications: *Heparin 5000 units SQ TID (Preferred with Epidurals) *Enoxaparin/Lovenox 40 mg SQ daily (WT < 150 kg, CrCl > 30 mL/min) *Enoxaparin/Lovenox 30 mg SQ daily (WT < 150 kg, CrCl > 10-29 mL/min) *Enoxaparin/Lovenox 30 mg SQ BID (WT < 150 kg, CrCl > 30 mL/min) AND *Sequential Compression Device (SCD) Assessment and Plan - Plan Assessment/plan: 1. CHF exacerbation BNP elevated with shortness of breath and small pleural effusion on chest x-ray , personally reviewed IV Lasix Supplemental oxygen as needed 2. Chest pain EKG without ST segment elevations or depressions, personally reviewed Initial troponin negative ACS rule out pending; serial troponins/EKGs 3. Chronic kidney disease Creatinine 1.82, baseline Monitor renal function 3. Atrial fibrillation Continue home medications Continue anticoagulation with Coumadin 4. CAD/hypertension/hyperlipidemia/dementia Continue home medications FEN N.p.o. Electrolytes: Monitor and replete as needed Coumadin
[2017-11-09 08:03] LABS: Creatine Kinase 66 U/L (39-308)
[2017-11-09] MEDS: Famotidine 20 MG Tablet PO SCH (09:32)
[2017-11-09] MEDS: amLODIPine 10 MG Tablet PO SCH (09:33)
[2017-11-09 13:47] LABS: Troponin I 0.02 ng/mL (0.02-0.05)
--- NOTE | 2017-11-09 14:46 | ECG ---
Date Performed: 11/09/2017 Time Performed: 12:29:07 PTAGE: 82 years EKG: Unclear underlying rhythm due to baseline artifact ELECTRONIC VENTRICULAR PACEMAKER ABNORMA L RHYTHM ECG No obvious changes PREVIOUS TRACING : 11/08/2017 21.24 DOCTOR: Kendall Gonzalez Interpretating Date/Time 11/09/2017 14:45:00
--- NOTE | 2017-11-09 16:38 | P.PN ---
Subjective Interval history: Follow-up for CHF exacerbation. Patient seen with his at bedside. Patient denies any further chest pains. Reports continued shortness of breath. He is a poor historian. The reports recently he has had trouble sleeping , although denies any orthopnea. The patient's reports he has had increasing agitation with his dementia, and she feels it would help him to start on a medication to help him sleep. Discussed risks and benefits of Seroquel, and patient and agrees to start the medication. Patient continues to have lower extremity edema, although slightly improved overnight. Denies any other medical complaints at this time. Of note, the patient and plan to return to [place] on December 17. They have had trouble finding a local PCP to follow-up with while in [place]. The is inquiring about switching from Coumadin to a different anticoagulation, however encouraged to follow-up with clock and watch assembler in [place]. Physical Exam Vital signs: Vital Signs 11/08/17 21:11 11/08/17 23:14 11/09/17 00:14 Temperature 97.6 F Pulse Rate 74 69 Respiratory Rate 20 26 H Blood Pressure 113/53 L 128/96 H Pulse Oximetry 92 L 93 L 93 L 11/09/17 03:55 11/09/17 07:00 11/09/17 08:47 Temperature Pulse Rate 70 68 68 Respiratory Rate 14 16 16 Blood Pressure 140/74 135/65 135/65 Pulse Oximetry 96 96 11/09/17 11:20 11/09/17 12:27 Temperature 97.5 F L Pulse Rate 69 69 Respiratory Rate 18 Blood Pressure 119/61 Pulse Oximetry 96 Intake & Output 11/08/17 11/09/17 11/09/17 18:59 06:59 18:59 Intake Total 360 / 360 Output Total 600 / 600 Balance -240 / -240 Weight 78.471 kg 79.832 kg Intake: Oral 360 / 360 Output: Urine 600 / 600 Other: Weight On Admission 78.471 kg Narrative: GENERAL: Well-nourished, well-developed patient in [facility]. SKIN: Warm and dry. No rash. HEENT: Normocephalic. Atraumatic. Pupils equal and round. Mucous membranes pink and moist. NECK: Supple. Trachea midline. CARDIOVASCULAR: Regular rate and rhythm. 3/6 systolic murmur noted. RESPIRATORY: No accessory muscle use. Diminished breath sounds at bilateral bases, otherwise clear to auscultation. Breath sounds equal bilaterally. GASTROINTESTINAL: Abdomen soft, non-tender, nondistended. Normoactive bowel sounds x4. MUSCULOSKELETAL: No obvious deformities. 1+ bilateral lower extremity edema. NEUROLOGICAL: Awake and alert. No obvious cranial nerve deficits. Motor grossly within normal limits. Moving all extremities spontaneously. Normal speech. PSYCHIATRIC: Appropriate mood and affect; insight and judgment normal. Results - Labs CBC & Chem 7: 11/08/17 23:50 11/08/17 23:50 Laboratory Results - last 24 hr 11/08/17 11/08/17 11/08/17 23:50 23:50 23:50 WBC 8.1 RBC 4.73 Hgb 12.0 L Hct 37.7 L MCV 79.7 L MCH 25.3 L MCHC 31.7 L RDW 18.8 H Plt Count 176 MPV 8.9 Neut % (Auto) 75.6 H Lymph % (Auto) 14.2 [place] % (Auto) 8.1 H Eos % (Auto) 1.1 Baso % (Auto) 1.0 Neut # (Auto) 6.1 Lymph # (Auto) 1.1 [place] # (Auto) 0.7 Eos # (Auto) 0.1 Baso # (Auto) 0.1 WBC Differential . Differential Comment Auto diff final PT 34.7 H INR 3.4 Sodium 139 Potassium 4.4 Chloride 104 Carbon Dioxide 24.1 Anion Gap 11 BUN 32 H Creatinine 1.82 H Estimated GFR 36 L Random Glucose 117 H Calcium 8.6 Magnesium 2.2 Total Creatine Kinase 78 Troponin I Less than 0.02 L B-Natriuretic Peptide Urine Color Urine Clarity Urine pH Ur Specific [place] Urine Protein Urine Glucose (UA) Urine Ketones Urine Occult Blood Urine Nitrate Urine Bilirubin Urine Urobilinogen Ur Leukocyte Esterase Urine RBC Urine WBC Urine WBC Clumps Urine Bacteria 11/08/17 11/09/17 11/09/17 23:50 00:35 05:32 WBC RBC Hgb Hct MCV MCH MCHC RDW Plt Count MPV Neut % (Auto) Lymph % (Auto) [place] % (Auto) Eos % (Auto) Baso % (Auto) Neut # (Auto) Lymph # (Auto) [place] # (Auto) Eos # (Auto) Baso # (Auto) WBC Differential Differential Comment PT INR Sodium Potassium Chloride Carbon Dioxide Anion Gap BUN Creatinine Estimated GFR Random Glucose Calcium Magnesium Total Creatine Kinase Troponin I B-Natriuretic Peptide 1663 H 2277 H Urine Color Red Urine Clarity Hazy H Urine pH 6.0 Ur Specific [place] 1.015 Urine Protein 100 H Urine Glucose (UA) Negative Urine Ketones Negative Urine Occult Blood Large H Urine Nitrate Negative Urine Bilirubin Negative Urine Urobilinogen Less than 2 Ur Leukocyte Esterase Negative Urine RBC Urine WBC 40 H Urine WBC Clumps Occasional H Urine Bacteria Occasional H 11/09/17 11/09/17 05:32 12:48 WBC RBC Hgb Hct MCV MCH MCHC RDW Plt Count MPV Neut % (Auto) Lymph % (Auto) [place] % (Auto) Eos % (Auto) Baso % (Auto) Neut # (Auto) Lymph # (Auto) [place] # (Auto) Eos # (Auto) Baso # (Auto) WBC Differential Differential Comment PT INR Sodium Potassium Chloride Carbon Dioxide Anion Gap BUN Creatinine Estimated GFR Random Glucose Calcium Magnesium Total Creatine Kinase 66 75 Troponin I Less than 0.02 L 0.02 B-Natriuretic Peptide Urine Color Urine Clarity Urine pH Ur Specific [place] Urine Protein Urine Glucose (UA) Urine Ketones Urine Occult Blood Urine Nitrate Urine Bilirubin Urine Urobilinogen Ur Leukocyte Esterase Urine RBC Urine WBC Urine WBC Clumps Urine Bacteria - Imaging Impressions Chest X-Ray 11/08/17 23:15 CONCLUSION: 1. Stable appearance of the chest with compensated cardiomegaly. 2. Left basilar atelectasis/airspace disease with associated small effusion. Again, unchanged. 3. Postsurgical changes of CABG. Probable clip on the left atrial appendage. Assessment and Plan - Plan 82-year-old male with a past medical history significant for atrial fibrillation anticoagulated on Coumadin, coronary artery disease (status post CABG 3 in April), hypertension, hyperlipidemia, CHF and dementia presents to the emergency department for the evaluation of shortness of breath and chest pain. Acute Systolic CHF Exacerbation: EMR reviewed, Echo 10/13/17 showed EF 25-30%, mild-mod MR, mod-severe TR, moderate aortic stenosis. AICD in place. -BNP elevated at 2277 -CXR reviewed, shows stable chest with compensated cardiomegaly; left basilar atelectasis/airspace disease with associated small effusion -Continue diuresis with IV Lasix 40mg bid (consider trial of IV Bumex if no response), caution with renal function -Monitor Is&Os -Fluid restrictions -Supplemental oxygen as needed -Monitor for improvement Chest pain: atypical -EKG without ST segment elevations or depressions, personally reviewed -ACS ruled out with negative serial cardiac enzymes x3 -continue aspirin, BB, statin Chronic kidney disease, stage III: chronic, Cr 1.82, appears at previous baseline. -Avoid nephrotoxins -Monitor renal function Atrial fibrillation: chronic. Has pacer/AICD -Continue home medications including metoprolol -Continue home anticoagulation with Coumadin, monitor INR, currently supratherapeutic at 3.4 -Monitor INR -Consult pharmacy to assist with Coumadin dosing CAD/hypertension/hyperlipidemia: chronic, BP well controlled -continue home medications including amlodipine, losartan, metoprolol, statin Dementia: chronic -continue patient's aricept -added seroquel 25mg hs to help with agitation and insomnia BPH: chronic -continue patient's tamsulosin DVT Prophylaxis: on Coumadin Discharge Planning: Discharge pending further clinical improvement, not yet ready for discharge, likely require additional 1-2 days of IV diuresis.
[2017-11-09] MEDS ORDERED: Warfarin Consult Pharmacy 1 EACH OTHER SCH (17:00)
--- NOTE | 2017-11-09 18:50 | ECG ---
Date Performed: 11/08/2017 Time Performed: 21:24:22 PTAGE: 82 years EKG: ELECTRONIC VENTRICULAR PACEMAKER ABNORMAL RHYTHM ECG Since the PREVIOUS TRACING , no significant change noted DOCTOR: Cabrera Calloway Interpretating Date/Time 11/09/2017 18:48:43
[2017-11-09] MEDS ORDERED: QUEtiapine 25 MG Tablet PO ONE (21:00)
[2017-11-10 07:37] LABS: INR 3.4 Ratio; Prothrombin Time 33.9 sec (9.8-11.6)
[2017-11-10 07:41] LABS: Baso % (Auto) 0.8 % (0.0-2.0); Eos # (Auto) 0.2 th/mm3 (0.0-0.4); Eos % (Auto) 3.1 % (0.0-4.0); Hematocrit 33.1 % (39.0-51.0); Hemoglobin 10.6 gm/dL (13.0-17.0); Lymph # (Auto) 1.1 th/mm3 (1.0-4.8); Lymph % (Auto) 17.8 % (9.0-44.0); Mean Corpuscular HGB Conc 32.1 % (32.0-36.0); Mean Corpuscular Hemoglobin 25.4 pg (27.0-34.0); Mean Platelet Volume 8.7 fL (7.0-11.0); Mono # (Auto) 0.4 th/mm3 (0.0-0.9); Mono % (Auto) 7.1 % (0.0-8.0); Neut # (Auto) 4.3 th/mm3 (1.8-7.7); Neut % (Auto) 71.2 % (16.0-70.0); Platelet Count 164 th/mm3 (150-450); Red Blood Count 4.18 mil/mm3 (4.50-5.90); Red Cell Distribution Width 18.2 % (11.6-17.2); White Blood Count 6.1 th/mm3 (4.0-11.0)
[2017-11-10 07:55] LABS: Calcium 8.4 mg/dL (8.5-10.1); Carbon Dioxide 25.1 meq/L (21.0-32.0); Potassium 3.9 meq/L (3.5-5.1)
[2017-11-10] MEDS: amLODIPine 10 MG Tablet PO SCH (09:22)
[2017-11-10] MEDS: Famotidine 20 MG Tablet PO SCH (09:23)
--- NOTE | 2017-11-10 09:39 | P.PN ---
Subjective Interval history: Follow up for CHF exacerbation. The patient is seen sitting upright on the side of the bed. The patient is oriented to self only, and is an unreliable historian. He denies any cough or shortness of breath. Denies orthopnea. He initially denies any lower extremity edema, however has 2+ edema in bilateral lower extremities. O2 sat currently stable on room air. Physical Exam Vital signs: Vital Signs 11/09/17 11:20 11/09/17 12:27 11/09/17 16:00 Temperature 97.5 F L 98.4 F Pulse Rate 69 69 69 Respiratory Rate 18 18 Blood Pressure 119/61 126/66 Pulse Oximetry 96 91 L 11/09/17 17:33 11/09/17 20:00 11/09/17 23:37 Temperature 97.5 F L 100.0 F H Pulse Rate 69 70 70 Respiratory Rate 15 16 Blood Pressure 109/57 L 91/75 L Pulse Oximetry 93 L 90 L 11/10/17 04:00 11/10/17 06:00 11/10/17 08:00 Temperature 97.9 F 97.7 F Pulse Rate 71 69 69 Respiratory Rate 16 16 Blood Pressure 109/66 119/71 Pulse Oximetry 91 L 97 Intake & Output 11/09/17 11/10/17 11/10/17 18:59 06:59 18:59 Intake Total 480 / 480 240 / 240 Output Total 700 / 700 450 / 450 Balance -220 / -220 -210 / -210 Weight 79.832 kg 84.8 kg Intake: Oral 480 / 480 240 / 240 Output: Urine 700 / 700 450 / 450 Other: # Voids 3 Date of Last Bowel Movement 11/09/17 Weight On Admission 78.471 kg Narrative: GENERAL: Well-nourished, well-developed pleasantly confused elderly male patient in [facility]. SKIN: Warm and dry. No rash. HEENT: Normocephalic. Atraumatic. Pupils equal and round. Mucous membranes pink and moist. NECK: Supple. Trachea midline. CARDIOVASCULAR: Regular rate and rhythm. 3/6 systolic murmur noted. RESPIRATORY: No accessory muscle use. Diminished breath sounds at bilateral bases, otherwise clear to auscultation. Breath sounds equal bilaterally. GASTROINTESTINAL: Abdomen soft, non-tender, nondistended. Normoactive bowel sounds x4. MUSCULOSKELETAL: No obvious deformities. 1+ bilateral lower extremity edema from feet to distal knees. NEUROLOGICAL: Awake and alert. No obvious cranial nerve deficits. Motor grossly within normal limits. Moving all extremities spontaneously. Normal speech. PSYCHIATRIC: Appropriate mood and affect; insight and judgment limited. Results - Labs CBC & Chem 7: 11/10/17 06:45 11/10/17 06:45 Laboratory Results - last 24 hr 11/09/17 11/10/17 11/10/17 12:48 06:45 06:45 WBC 6.1 RBC 4.18 L Hgb 10.6 L Hct 33.1 L MCV 79.0 L MCH 25.4 L MCHC 32.1 RDW 18.2 H Plt Count 164 MPV 8.7 Neut % (Auto) 71.2 H Lymph % (Auto) 17.8 [place] % (Auto) 7.1 Eos % (Auto) 3.1 Baso % (Auto) 0.8 Neut # (Auto) 4.3 Lymph # (Auto) 1.1 [place] # (Auto) 0.4 Eos # (Auto) 0.2 Baso # (Auto) 0.0 WBC Differential . Differential Comment Auto diff final PT INR Sodium 140 Potassium 3.9 Chloride 108 H Carbon Dioxide 25.1 Anion Gap 7 BUN 25 H Creatinine 1.40 H Estimated GFR 48 L Random Glucose 89 Calcium 8.4 L Total Creatine Kinase 75 Troponin I 0.02 11/10/17 06:45 WBC RBC Hgb Hct MCV MCH MCHC RDW Plt Count MPV Neut % (Auto) Lymph % (Auto) [place] % (Auto) Eos % (Auto) Baso % (Auto) Neut # (Auto) Lymph # (Auto) [place] # (Auto) Eos # (Auto) Baso # (Auto) WBC Differential Differential Comment PT 33.9 H INR 3.4 Sodium Potassium Chloride Carbon Dioxide Anion Gap BUN Creatinine Estimated GFR Random Glucose Calcium Total Creatine Kinase Troponin I Assessment and Plan - Plan 82-year-old male with a past medical history significant for atrial fibrillation anticoagulated on Coumadin, coronary artery disease (status post CABG 3 in April), hypertension, hyperlipidemia, CHF and dementia presents to the emergency department for the evaluation of shortness of breath and chest pain. Acute Systolic CHF Exacerbation: EMR reviewed, Echo 10/13/17 showed EF 25-30%, mild-mod MR, mod-severe TR, moderate aortic stenosis. AICD in place. -BNP elevated at 2277 -CXR reviewed, shows stable chest with compensated cardiomegaly; left basilar atelectasis/airspace disease with associated small effusion -Continue diuresis with IV Lasix 40mg bid (consider trial of IV Bumex if no response), caution with renal function -Monitor Is&Os -Fluid restrictions -Supplemental oxygen as needed -Monitor for improvement, slowly diuresing Chest pain: atypical -EKG without ST segment elevations or depressions, personally reviewed -ACS ruled out with negative serial cardiac enzymes x3 -continue aspirin, BB, statin -no further complaints of chest pain Chronic kidney disease, stage III: chronic, Cr 1.82, appears at previous baseline. -Avoid nephrotoxins -Monitor renal function, improved today with Cr 1.4 Atrial fibrillation: chronic. Has pacer/AICD -Continue home medications including metoprolol -Home Coumadin on hold with supratherapeutic INR 3.4 -Monitor INR -Consult pharmacy to assist with Coumadin dosing, appreciate assistance CAD/hypertension/hyperlipidemia: chronic, BP well controlled -continue home medications including amlodipine, losartan, metoprolol, statin Dementia: chronic -continue patient's aricept -added seroquel 25mg hs to help with agitation and insomnia BPH: chronic -continue patient's tamsulosin DVT Prophylaxis: on Coumadin Discharge Planning: Discharge pending further clinical improvement, not yet ready for discharge, likely require additional 1-2 days of IV diuresis.
[2017-11-11 08:01] LABS: Prothrombin Time 30.4 sec (9.8-11.6)
[2017-11-11] MEDS: amLODIPine 10 MG Tablet PO SCH (08:11)
[2017-11-11] MEDS: Famotidine 20 MG Tablet PO SCH (08:11)
[2017-11-11 08:23] LABS: Carbon Dioxide 25.6 meq/L (21.0-32.0); Potassium 4.6 meq/L (3.5-5.1)
--- NOTE | 2017-11-11 13:46 | P.PN ---
Subjective Interval history: Follow up for CHF exacerbation. The patient is pleasant confused, oriented to self only. He is an unreliable historian. He is seen shortly after ambulating, noticeably dyspneic, however he denies any shortness of breath. He admits his leg swelling is not much improved compared to previous days. Encouraged to elevate his legs in bed. He reports a nonproductive cough. Denies any chest pain. Denies any other medical complaints at this time. Physical Exam Vital signs: Vital Signs 11/10/17 16:00 11/10/17 20:00 11/10/17 23:33 Temperature 98.0 F 97.8 F 97.8 F Pulse Rate 70 69 70 Respiratory Rate 16 16 16 Blood Pressure 110/65 105/65 107/63 Pulse Oximetry 97 96 97 11/11/17 03:57 11/11/17 09:05 11/11/17 10:28 Temperature 97.8 F 97.8 F Pulse Rate 70 72 69 Respiratory Rate 15 20 Blood Pressure 102/60 116/64 Pulse Oximetry 93 L 98 Intake & Output 11/10/17 11/11/17 11/11/17 18:59 06:59 18:59 Other: Date of Last Bowel Movement 11/09/17 Narrative: GENERAL: Well-nourished, well-developed pleasantly confused elderly male patient in [facility]. SKIN: Warm and dry. No rash. HEENT: Normocephalic. Atraumatic. Pupils equal and round. Mucous membranes pink and moist. NECK: Supple. Trachea midline. CARDIOVASCULAR: Regular rate and rhythm. 3/6 systolic murmur noted. RESPIRATORY: No accessory muscle use. Diminished breath sounds at bilateral bases, otherwise clear to auscultation. Breath sounds equal bilaterally. GASTROINTESTINAL: Abdomen soft, non-tender, nondistended. Normoactive bowel sounds x4. MUSCULOSKELETAL: No obvious deformities. 2+ bilateral lower extremity edema from feet to distal knees. NEUROLOGICAL: Awake and alert. No obvious cranial nerve deficits. Motor grossly within normal limits. Moving all extremities spontaneously. Normal speech. PSYCHIATRIC: Appropriate mood and affect; insight and judgment limited. Results - Labs CBC & Chem 7: 11/10/17 06:45 11/11/17 07:10 Laboratory Results - last 24 hr 11/11/17 11/11/17 07:10 07:10 PT 30.4 H INR 3.0 Sodium 139 Potassium 4.6 Chloride 105 Carbon Dioxide 25.6 Anion Gap 8 BUN 32 H Creatinine 1.56 H Estimated GFR 43 L Random Glucose 94 Calcium 9.0 Assessment and Plan - Plan 82-year-old male with a past medical history significant for atrial fibrillation anticoagulated on Coumadin, coronary artery disease (status post CABG 3 in April), hypertension, hyperlipidemia, CHF and dementia presents to the emergency department for the evaluation of shortness of breath and chest pain. Acute Systolic CHF Exacerbation: EMR reviewed, Echo 10/13/17 showed EF 25-30%, mild-mod MR, mod-severe TR, moderate aortic stenosis. AICD in place. -BNP elevated at 2277 -CXR reviewed, shows stable chest with compensated cardiomegaly; left basilar atelectasis/airspace disease with associated small effusion -Given diuresis with IV Lasix 40mg bid, however not much improvement, changed diuretic to IV Bumex 1mg bid, caution with renal function -Monitor Is&Os, Fluid restrictions, Daily weights -Supplemental oxygen as needed -Monitor for improvement, slowly diuresing Chest pain: atypical -EKG without ST segment elevations or depressions, personally reviewed -ACS ruled out with negative serial cardiac enzymes x3 -continue aspirin, BB, statin -no further complaints of chest pain Chronic kidney disease, stage III: chronic, Cr 1.82, appears at previous baseline. -Avoid nephrotoxins -Monitor renal function, slightly improved, Cr 1.56 Atrial fibrillation: chronic. Has pacer/AICD -Continue home medications including metoprolol -Home Coumadin on hold with supratherapeutic INR 3.4 -Monitor INR -Consult pharmacy to assist with Coumadin dosing, appreciate assistance -INR 3.0 today, pharmacy to adjust CAD/hypertension/hyperlipidemia: chronic, BP well controlled -continue home medications including amlodipine, losartan, metoprolol, statin Dementia: chronic -continue patient's aricept -added seroquel 25mg hs to help with agitation and insomnia, patient's requests prescription for this at discharge BPH: chronic -continue patient's tamsulosin DVT Prophylaxis: on Coumadin Discharge Planning: Discharge pending further clinical improvement, not yet ready for discharge, likely require additional 1-2 days of IV diuresis, changed to IV bumex today. Plan to give referral for cardiopulmonary rehab upon discharge.
[2017-11-12 07:34] LABS: INR 2.6 Ratio; Prothrombin Time 26.2 sec (9.8-11.6)
[2017-11-12 07:55] LABS: Calcium 8.8 mg/dL (8.5-10.1); Carbon Dioxide 21.2 meq/L (21.0-32.0); Potassium 4.3 meq/L (3.5-5.1)
[2017-11-12] MEDS: Famotidine 20 MG Tablet PO SCH (09:42)
[2017-11-12] MEDS: QUEtiapine 25 MG Tablet PO SCH ×2 (09:43→13:36)
[2017-11-12] MEDS: amLODIPine 10 MG Tablet PO SCH ×2 (09:43→13:19)
--- NOTE | 2017-11-12 11:40 | P.PN ---
Subjective Interval history: Follow-up visit CHF exacerbation. Patient seen and examined today. at the bedside. Patient has been confused all morning walking around the unit trying to go home. Oriented to self only. States is doing okay. No shortness of breath or dyspnea. Continues to have bilateral lower extremity edema right greater than the left. Reports occasional cough, nonproductive. Denies any fevers, chills, nausea, vomiting, diarrhea. Denies any chest pain. Physical Exam Vital signs: Vital Signs 11/11/17 16:00 11/11/17 16:45 11/11/17 20:00 Temperature 96.2 F L 98.3 F Pulse Rate 70 70 Respiratory Rate 18 16 Blood Pressure 114/59 L 109/62 Pulse Oximetry 96 98 97 11/12/17 00:00 11/12/17 03:44 11/12/17 08:00 Temperature 98.2 F 98.3 F 97.7 F Pulse Rate 70 71 70 Respiratory Rate 15 16 16 Blood Pressure 96/56 L 111/67 111/69 Pulse Oximetry 97 91 L 97 Intake & Output 11/11/17 11/12/17 11/12/17 18:59 06:59 18:59 Intake Total 750 / 750 Balance 750 / 750 Intake: Oral 750 / 750 Narrative: GENERAL: This is a well-nourished, well-developed patient, in no apparent distress. SKIN: Warm and dry HEENT: Normocephalic. Pupils equal round and reactive. Nose without bleeding. Airway patent. NECK: Trachea midline. Supple. CARDIOVASCULAR: Regular rate and rhythm without murmurs, gallops, or rubs. RESPIRATORY: Clear to auscultation. Breath sounds equal bilaterally. No wheezes , rales, or rhonchi. GASTROINTESTINAL: Abdomen soft, non-tender, nondistended. Bowel Sounds normoactive x4. MUSCULOSKELETAL: Extremities without clubbing, cyanosis. Lateral lower extremity edema +3 right greater than the left. NEUROLOGICAL: Awake and alert. Oriented to self. Moves all extremities. Normal speech. Results - Labs CBC & Chem 7: 11/10/17 06:45 11/12/17 06:35 Laboratory Results - last 24 hr 11/11/17 11/12/17 11/12/17 17:29 06:35 06:35 PT 26.2 H INR 2.6 Sodium 139 Potassium 4.3 Chloride 104 Carbon Dioxide 21.2 Anion Gap 14 BUN 37 H Creatinine 1.80 H Estimated GFR 36 L Random Glucose 83 Calcium 8.8 B-Natriuretic Peptide 2763 H Assessment and Plan - Assessment (1) Acute renal failure Code(s): N17.9 - Acute kidney failure, unspecified Status: Acute (2) CHF (congestive heart failure), NYHA class III Code(s): I50.9 - Heart failure, unspecified Status: Acute (3) HTN (hypertension) Code(s): I10 - Essential (primary) hypertension Status: Acute - Plan 82-year-old male with a past medical history significant for atrial fibrillation anticoagulated on Coumadin, coronary artery disease (status post CABG 3 in April), hypertension, hyperlipidemia, CHF and dementia presents to the emergency department for the evaluation of shortness of breath and chest pain. Acute Systolic CHF Exacerbation: EMR reviewed, Echo 10/13/17 showed EF 25-30%, mild-mod MR, mod-severe TR, moderate aortic stenosis. AICD in place. -BNP elevated at 2277 -CXR reviewed, stable chest with compensated cardiomegaly; left basilar atelectasis/airspace disease with associated small effusion -IV Lasix 40mg bid, however not much improvement, changed diuretic to IV Bumex 1mg bid, caution with renal function -Monitor Is&Os, Fluid restrictions, Daily weights -Supplemental oxygen as needed -Monitor for improvement, slowly diuresing -DC home with PO torsemide -DC Norvasc in lieu of CHF exacerbation, edema -Bilateral lower extremity edema, start Dom wrap, elevate and rest. Chest pain: atypical -EKG without ST segment elevations or depressions, personally reviewed -ACS ruled out with negative serial cardiac enzymes x3 -continue aspirin, BB, statin -no further complaints of chest pain Chronic kidney disease, stage III: chronic, Cr 1.82, appears at previous baseline. -Avoid nephrotoxins -Monitor renal function Atrial fibrillation: chronic. Has pacer/AICD -Continue home medications including metoprolol -Continue Coumadin -Monitor INR, today's INR 2.6 therapeutic -Consult pharmacy to assist with Coumadin dosing, appreciate assistance CAD/hypertension/hyperlipidemia: chronic, BP well controlled -continue home medications including amlodipine, losartan, metoprolol, statin Dementia: chronic -Continue patient's Aricept -Start Seroquel twice daily 25 mg, Seroquel 50 mg nightly if patient is tolerating. BPH: chronic -continue patient's tamsulosin DVT Prophylaxis: on Coumadin Code Status: Full Code Discussed Condition With: Patient, , nursing Discharge Planning: Plan to DC home tomorrow when improved (2) CHF (congestive heart failure), NYHA class III Qualifiers: Congestive heart failure type: systolic Congestive heart failure chronicity: acute on chronic Qualified Code(s): I50.23 - Acute on chronic systolic ( congestive) heart failure (3) HTN (hypertension) Qualifiers: Hypertension type: essential hypertension Qualified Code(s): I10 - Essential (primary) hypertension
[2017-11-12] MEDS ORDERED: QUEtiapine 25 MG Tablet PO SCH (21:00)
[2017-11-12 23:39] VITALS: RESP 18; O2SAT 95
[2017-11-13 06:35] LABS: INR 2.6 Ratio; Prothrombin Time 26.7 sec (9.8-11.6)
[2017-11-13 07:54] VITALS: BP 115/65; PULSE 70; TEMP 98
[2017-11-13] MEDS: Famotidine 20 MG Tablet PO SCH (09:59)
[2017-11-13] MEDS: QUEtiapine 25 MG Tablet PO SCH (09:59)
[2017-11-13 10:11] LABS: Baso # (Auto) 0.1 th/mm3 (0.0-0.2); Baso % (Auto) 1.2 % (0.0-2.0); Eos % (Auto) 0.4 % (0.0-4.0); Hematocrit 33.1 % (39.0-51.0); Hemoglobin 10.9 gm/dL (13.0-17.0); Lymph # (Auto) 0.8 th/mm3 (1.0-4.8); Lymph % (Auto) 11.9 % (9.0-44.0); Mean Corpuscular Hemoglobin 26.1 pg (27.0-34.0); Mean Corpuscular Volume 78.9 fL (80.0-100.0); Mean Platelet Volume 9.1 fL (7.0-11.0); Mono # (Auto) 0.5 th/mm3 (0.0-0.9); Mono % (Auto) 7.6 % (0.0-8.0); Neut # (Auto) 5.5 th/mm3 (1.8-7.7); Neut % (Auto) 78.9 % (16.0-70.0); Platelet Count 183 th/mm3 (150-450); Red Blood Count 4.19 mil/mm3 (4.50-5.90); Red Cell Distribution Width 18.9 % (11.6-17.2)
[2017-11-13 10:53] LABS: Calcium 9.3 mg/dL (8.5-10.1); Carbon Dioxide 23.4 meq/L (21.0-32.0); Potassium 5.1 meq/L (3.5-5.1)
--- NOTE | 2017-11-13 10:54 | P.DS ---
Date of admission: 11/11/17 18:52 Primary care physician: Deyvi Lima Attending physician on discharge: Andrea Henderson Anticipated date of discharge: 11/13/17 Brief History from admission: 82-year-old male with a past medical history significant for atrial fibrillation anticoagulated on Coumadin, coronary artery disease (status post CABG 3 in April), hypertension, hyperlipidemia, CHF and dementia presents to the emergency department for the evaluation of shortness of breath and chest pain. The patient and his had driven to care for earlier today but because he felt short of breath they returned to [facility] to be evaluated. The patient describes his chest pain as a substernal pressure that is nonradiating. He was hospitalized a week ago for CHF exacerbation and discharged home. The patient reports he has been drinking a lot of water lately. He states no one ever told him to restrict his fluids. He also states that he took some of his medications at night that were his morning meds and he missed his morning meds. He is unsure of which medications he took. His states that she usually controls his medications but is unsure of exactly what medications he took. DS: Diagnosis - Discharge Diagnosis (1) Acute renal failure Status: Acute (2) CHF (congestive heart failure), NYHA class III Status: Acute (3) HTN (hypertension) Status: Acute DS: Medications - Discharge Medications Prescriptions: famotidine 20 mg PO DAILY #30 tab potassium chloride 20 meq PO DAILY #30 tab quetiapine 25 mg PO BID@0900,1200 #60 tab quetiapine 50 mg PO HS #30 tab torsemide 40 mg PO DAILY 30 Days #60 tab warfarin [Coumadin] 2 mg PO DAILY@1600 #10 tab DS: Summary Hospital Course: 82-year-old male with a past medical history significant for atrial fibrillation anticoagulated on Coumadin, coronary artery disease (status post CABG 3 in April), hypertension, hyperlipidemia, CHF and dementia presents to the emergency department for the evaluation of shortness of breath and chest pain. Patient found to have acute systolic CHF exacerbation, BNP was elevated at 2277. CXR reviewed, stable chest with compensated cardiomegaly; left basilar atelectasis/airspace disease with associated small effusion. Patient was given IV Lasix however not much improvement has been seen and was treated with diuretic to IV Bumex. Patient is slowly improved. He will continue with torsemide when he goes home. Norvasc has been discontinued in view of the CHF exacerbation and edema. Patient's bilateral lower extremity edema slowly improved but will need Dom wrap and leg elevation at rest to continue. Patient presented with atypical chest pain. EKG without ST segment elevation or depression. ACS was ruled out with negative serial cardiac enzymes. Patient continued to be on aspirin, beta kathryn, statin. During his hospitalization no symptomatology for chest pain. Patient has chronic kidney disease stage III. Previous baseline 1.82. He will continue with the torsemide. Avoid other nephrotoxins. He needs to follow-up with renal function and outpatient. He also has atrial fibrillation which is chronic he has a pacer and AICD. He will continue his home medications metoprolol. He will continue Coumadin at a lower dose as patient came in with a supratherapeutic INR. He will need labs in 3 days. As per they will follow up with PCP in home place. Patient has chronic dementia, and has been exacerbated. As per , this is been an ongoing thing with her and he is on Aricept but most of the time unable to control his behavior at home. Patient was started on Seroquel twice daily and also Seroquel 50 mg at bedtime. is very thankful about starting the medication. Recommended to start Namenda when he sees his PCP. They can also adjust the Seroquel. Verbalized understanding. Patient has met maximal benefits of hospitalization. Clinically stable for discharge. - Time Spent with Patient Total time spent providing and/or coordinating discharge services: Less than 30 minutes - Quality: VTE Deep Vein Thrombosis/Pulmonary Embolism Present on Admission: Yes Exam Vital signs: Vital Signs 11/12/17 12:00 11/12/17 15:17 11/12/17 20:00 Temperature 96.7 F L 96.6 F L Pulse Rate 76 71 70 Respiratory Rate 16 16 14 Blood Pressure 96/61 L 120/96 H 112/70 Pulse Oximetry 94 L 95 97 11/12/17 23:35 11/13/17 07:52 11/13/17 08:00 Temperature 97.9 F 98.0 F Pulse Rate 72 70 Respiratory Rate 18 18 18 Blood Pressure 104/65 115/65 Pulse Oximetry 95 95 Intake & Output 11/12/17 11/13/17 11/13/17 18:59 06:59 18:59 Intake Total 200 / 200 Output Total 150 / 150 Balance 50 / 50 Intake: Oral 200 / 200 Output: Urine 150 / 150 Other: Date of Last Bowel Movement 11/12/17 Narrative: GENERAL: This is a well-nourished, well-developed patient, in no apparent distress. SKIN: Warm and dry HEENT: Normocephalic. Pupils equal round and reactive. Nose without bleeding. Airway patent. NECK: Trachea midline. Supple. CARDIOVASCULAR: Regular rate and rhythm without murmurs, gallops, or rubs. RESPIRATORY: Clear to auscultation. Breath sounds equal bilaterally. No wheezes , rales, or rhonchi. GASTROINTESTINAL: Abdomen soft, non-tender, nondistended. Bowel Sounds normoactive x4. MUSCULOSKELETAL: Extremities without clubbing, cyanosis. Lateral lower extremity edema +2 right greater than the left. NEUROLOGICAL: Awake and alert. Oriented to self. Moves all extremities. Normal speech. Results Procedures completed during hospitalization: None Labs on day of discharge: Labs from last 24 hours 11/13/17 11/13/17 11/13/17 09:54 09:54 05:40 WBC 7.0 RBC 4.19 L Hgb 10.9 L Hct 33.1 L MCV 78.9 L MCH 26.1 L MCHC 33.0 RDW 18.9 H Plt Count 183 MPV 9.1 Neut % (Auto) 78.9 H Lymph % (Auto) 11.9 Harnett % (Auto) 7.6 Eos % (Auto) 0.4 Baso % (Auto) 1.2 Neut # (Auto) 5.5 Lymph # (Auto) 0.8 L Harnett # (Auto) 0.5 Eos # (Auto) 0.0 Baso # (Auto) 0.1 WBC Differential . Differential Comment Auto diff final PT 26.7 H INR 2.6 Sodium 137 Potassium 5.1 D Chloride 103 Carbon Dioxide 23.4 Anion Gap 11 BUN 53 H Creatinine 2.42 H Estimated GFR 26 L Random Glucose 97 Calcium 9.3 - Impressions ITS Impressions Chest X-Ray 11/08/17 23:15 CONCLUSION: 1. Stable appearance of the chest with compensated cardiomegaly. 2. Left basilar atelectasis/airspace disease with associated small effusion. Again, unchanged. 3. Postsurgical changes of CABG. Probable clip on the left atrial appendage. Discharge Plan - Discharge Disposition Patient Disposition: 01 Discharge Home - Discharge Condition Condition: Stable - Discharge Order Discharge Orders: Discharge Order (Routine); Ordered 11/13/17 Ordered By: Jesus Hamlin - Physicians Team Attending Provider: Andrea Henderson
== END 2017-11-13 13:04 | disposition home or self-care (01) ==
LOC: NEPC 20:29 → NEDA 20:29 → NEDH 11-09 06:17 → NEPGCP 11-09 10:19
PROVIDERS: ADMIT Internal Medicine; ATTEND Internal Medicine